=== PATIENT | male | born 1940 | race Caucasian/White ===

== ENCOUNTER 2023-09-23 16:26 | Emergency (ER) | payer OTHER, SELFPAY ==
[2023-09-23 16:59] VITALS: BP 187/88
[2023-09-23 17:26] LABS: % Basophils 0.7 % (0-2); % Eosinophils 0.7 % (0-6); % Immature Granulocytes 0.7 % (0-0.5); % Lymphocytes 13.9 % (20.5-51.1); Absolute Lymphocytes 0.8 10^3/uL (1.2-3.4); Absolute Monocytes 0.5 10^3/uL (0.1-0.6); Absolute Neutrophils 4.5 10^3/uL (1.4-6.5); Hematocrit 28.8 % (39.0-52.0); Hemoglobin 9.6 g/dL (13.0-18.0); Mean Corp Hgb Conc. 33.3 g/dL (33.0-37.0); Mean Corpuscular Hgb 29.1 pg (27.0-31.0); Mean Corpuscular Volume 87.3 fL (80.0-94.0); Mean Platelet Volume 9.8 fL (7.4-10.4); Nucleated Red Blood Cells % 0 % (-); Platelet Count 364 10^3/uL (130-400); Red Cell Dist. Width 16.7 % (11.5-14.5); White Blood Cell Count 5.9 10^3/uL (4.8-10.8)
[2023-09-23 17:41] LABS: ALT (SGPT) < 10 U/L (0-50); AST (SGOT) 16 U/L (17-59); Albumin 3.4 g/dl (3.5-5.0); Alkaline Phosphatase 87 U/L (38-126); Blood Urea Nitrogen 21 mg/dl (9-20); Calcium 8.5 mg/dl (8.4-10.2); Carbon Dioxide 25 mmol/L (22-30); Chloride 102 mmol/L (98-107); Glucose 104 mg/dl (70-99); Potassium 4.2 mmol/L (3.5-5.1); Sodium 134 mmol/L (135-145); Total Bilirubin 0.7 mg/dl (0.2-1.3); Total Protein 6.7 g/dl (6.3-8.2); Uric Acid 7.3 mg/dl (3.5-8.5); eGFR > 60.00
[2023-09-23 18:32] LABS: Erythrocyte Sed Rate 61 mm/hour (0-20)
--- NOTE | 2023-09-23 19:23 | ED.GENMED ---
History of Present Illness
General
Chief Complaint: Swelling
Source: patient and family
Exam Limitations: none
Time Seen by Provider: 09/23/23 19:07
Nursing documentation reviewed up to this point in time: agreed with
Travel History
Have you had any contact with someone who has COVID-19?: No
Do you have any symptoms of coronavirus? Fever > 100 degrees, chills, cough, shortness of breath, sore throat, loss of taste or smell, muscle aches, or headache?: No
History of Present Illness
History of Present Illness:
Patient with history osteoarthritis, presents to ED secondary to recurrent atraumatic left hand/wrist swelling noted over the past 2 days. Denies fever or chills. Denies direct trauma. Denies loss of sensation or weakness. Denies recent change
in medications or diet. Per family, patient unfortunately has had number of similar symptoms in the past, including opposite hand as well over the past couple years, which usually resolves with elevation.
Past History
Past History
ED Past Medical History: CAD, CHF, HTN, Hypercholesterolemia and Other (BPH)
ED Past Surgical History: Cardiac (Pacemaker, PTCA with stents) and Orthopedic (Bilateral knee replacements)
Patient has exhibited threatening behavior?: No
PSI?: No
Social History
Tobacco: Non-smoker
Personal:
Living: assisted living (Resides with in an assisted living apartment)
Employment: Retired
Family History
Family History: Other (Noncontributory)
Review of Systems
Review of Systems
Allergies reviewed?: Yes
All Other Systems: ROS reviewed and negative except as documented in HPI and ROS
Constitutional: Reports no symptoms
ABD/GI: Reports no symptoms
Musculoskeletal: Reports other (Hand and wrist swelling)
Skin: Reports no symptoms
Neurological: Reports no symptoms; Denies weakness or numbness
Phy Exam
Physical Exam
Physical Exam:
Physical Exam
General: no apparent distress, not acutely ill. afebrile
Head: nc/at. eomi
Neck: supple. normal range of motion.
Neuro: alert and oriented. no focal neurological deficits
Skin: no rash
Psychiatric: well kept. interactive and cooperative
Extremities: left hand/wrist swelling noted without erythema/ecchymosis. nontender to palpation.
Scores
Heart Failure Risk
Heart Failure Risk Score: Not Applicable
Course
Orders/Labs/Results
Orders:
Orders
09/23/23 17:08
Complete Blood Count/With Diff Urgent
Comprehensive Metabolic Panel Urgent
Erythrocyte Sed Rate Urgent
Comment: ADD ON
Rheumatoid Agglutinin Urgent
Comment: ADD ON
Uric Acid Urgent
09/23/23 17:50
Add On- LAB Urgent
Tests Added?: ESR
09/23/23 19:25
[place] Wrist Left-Treatment ONCE
09/23/23 19:27
Add On- LAB Urgent
Tests Added?: Rheumatoid factor
Abnormal Lab Results
09/23/23
17:08
RBC 3.30 L 10^6/uL
(4.70-6.10)
Hgb 9.6 L g/dL
(13.0-18.0)
Hct 28.8 L %
(39.0-52.0)
RDW 16.7 H %
(11.5-14.5)
Absolute Lymphs (auto) 0.8 L 10^3/uL
(1.2-3.4)
Immature Gran % 0.7 H %
(0-0.5)
Neutrophils % 76.0 H %
(42.2-75.2)
Lymphocytes % 13.9 L %
(20.5-51.1)
ESR 61 H mm/hour
(0-20)
Sodium 134 L mmol/L
(135-145)
BUN 21 H mg/dl
(9-20)
Glucose 104 H mg/dl
(70-99)
AST 16 L U/L
(17-59)
Albumin 3.4 L g/dl
(3.5-5.0)
09/23/23 17:08
09/23/23 17:08
Vital Signs
Initial and Last Documented VS:
Initial Vital Signs
Temp Pulse Resp BP Pulse Ox
98.2 F 55 20 187/88 95
09/23/23 16:59 09/23/23 16:59 09/23/23 16:59 09/23/23 16:59 09/23/23 16:59
Last Documented Vital Signs
Temp Pulse Resp BP Pulse Ox
98.2 F 55 20 187/88 95
09/23/23 16:59 09/23/23 16:59 09/23/23 16:59 09/23/23 19:47 09/23/23 16:59
MDM/Problems Addressed
MDM/Problems Addressed:
History and exam consistent with likely recurrent pain and swelling from underlying osteoarthritis versus with history of rheumatoid arthritis. Otherwise, patient is afebrile, neurologically intact, and is without any acute distress. No evidence
of trauma on exam, nor history of exam. As such, there is no indication for any imaging studies at this time. Patient will be treated symptomatically with application of universal wrist splint along with recommendation to keep the affected
hand/wrist elevated, as well as outpatient follow-up with PCP and/or chief of surgery. Advised to return to ED with worsening symptoms, i.e. fever/worsening swelling/pain.
Anemia noted - advised repeat blood work with pcp in 2-3 weeks
*Critical Care Note
Total Time (30-74mins, 75-104mins- exclusive of procedures): Not Applicable
ED Attending Note
-
Portions of this chart may have been created with voice recognition software.� Occasional wrong word or��sound alike� substitutions may have occurred due to the inherent limitations of voice recognition software.
Discharge Plan
Departure
Patient Disposition: Home (Routine Discharge)
Date of Disposition: 09/23/23
Time of Disposition: 19:27
Patient with high blood pressure during this ER visit?: Yes
Discharge Problem:
Osteoarthritis, Anemia
Instructions: Osteoarthritis (DC), Normocytic Normochromic Anemia (DC)
Prescriptions:
No Action
spironolactone 25 mg Tablet
12.5 mg PO DAILY
tamsulosin [Flomax] 0.4 mg Capsule
0.4 mg PO HS
finasteride [Proscar] 5 mg Tablet
5 mg PO DAILY
Entresto 24-26 mg Tablet
1 tab PO BID
cyanocobalamin (vitamin B-12) 1,000 mcg Tablet Extended Release
1,000 mcg PO DAILY
pravastatin 40 mg Tablet
40 mg PO HS
ranolazine 500 mg Tablet Extended Release 12 Hr
500 mg PO BID
cholecalciferol (vitamin D3) [Vitamin D3] 25 mcg (1,000 unit) Tablet
25 mcg PO DAILY
sennosides [senna] 8.6 mg Tablet
17.2 mg PO HS
polyethylene glycol 3350 [Miralax] 17 gram Powder In Packet
17 g PO DAILY
metoprolol succinate 50 mg Tablet Extended Release 24 Hr
50 mg PO DAILY
miconazole nitrate 2 % Powder
1 applic TOPICAL TIDPRN PRN (Reason: rash)
Rx Instructions:
apply to groin
furosemide 20 mg Tablet
20 mg PO DAILY
Ferretts 325 mg (106 mg iron) Tablet
325 mg PO MOWEFR
Eliquis 5 mg Tablet
5 mg PO BID
naloxone 4 mg/actuation spray,non-aerosol
4 mg INTRANASAL Q2MPRN PRN (Reason: respiratory distress)
Xtampza ER 9 mg Cap,Sprinkl,Er12hr(Robertt Crush)
9 mg PO Q12H
Hold Instructions: Resume on 06/17/23. Resume only after checking with your primary care physican if okay to resume.
midodrine 5 mg Tablet
10 mg PO TID@0800,1300,1800 Qty: 60 1RF
Rx Instructions:
*AVOID DOSING AFTER EVENING MEAL OR WITHIN 4 HOURS OF
BEDTIME* HOLD DOSE FOR SBP >100
Referrals:
Devonte Paez MD [Active] -
Karne Galvan DO [Family Provider] -
Activity Restrictions/Additional Instructions:
As discussed, please follow-up with your primary care physician and/or referred to bar tender for further evaluation and treatment. Please return to ED with worsening symptoms, i.e. fever/worsening pain/worsening swelling.
Interventions
Interventions:
*Risk Screen - Suicide Last Done: 09/23/23 16:59
*General Assessment Last Done: 09/23/23 16:59
*Neglect/Abuse Screening Last Done: 09/23/23 19:47
*Nursing Disposition Last Done: 09/23/23 19:47
ED- Cardiac Assessment Last Done: 09/23/23 19:47
ED- Pulmonary Assessment Last Done: 09/23/23 19:47
ED-Skin Assessment Last Done: 09/23/23 19:47
Discharge Date and Time
Discharge Date/Time: 09/23/23 19:49
[2023-09-23 19:47] VITALS: BP 187/88
[2023-09-26 15:49] LABS: Rheumatoid Agglutinin Less Than 10 IU (<10 IU)
== END 2023-09-23 19:49 | disposition home or self-care (01) ==
LOC: EMR 16:26
PROVIDERS: Emergency Medicine; EMERGENCY PHYSICIAN Emergency Medicine; FAMILY PHYSICIAN Student in an Organized Health Care Education/Training Program
DX: M19.032 Primary osteoarthritis, left wrist (principal); D64.9 Anemia, unspecified; I10 Essential (primary) hypertension
CPT/HCPCS: 99283; 29125; 80053; 84550; 85025; 85652; 86430

== ENCOUNTER → 2023-09-29 09:23 | Outpatient (REF) | payer OTHER, SELFPAY ==
[2023-09-29 10:45] LABS: % Basophils 0.9 % (0-2); % Eosinophils 1.2 % (0-6); % Immature Granulocytes 0.7 % (0-0.5); % Lymphocytes 14.5 % (20.5-51.1); % Monocytes 9.2 % (1.7-9.3); % Neutrophils 73.5 % (42.2-75.2); Absolute Basophils 0.1 10^3/uL (0-0.2); Absolute Eosinophils 0.1 10^3/uL (0-0.7); Absolute Lymphocytes 0.8 10^3/uL (1.2-3.4); Absolute Monocytes 0.5 10^3/uL (0.1-0.6); Absolute Neutrophils 4.2 10^3/uL (1.4-6.5); Hematocrit 25.9 % (39.0-52.0); Hemoglobin 8.8 g/dL (13.0-18.0); Mean Corpuscular Hgb 29.8 pg (27.0-31.0); Mean Corpuscular Volume 87.8 fL (80.0-94.0); Mean Platelet Volume 10.5 fL (7.4-10.4); Nucleated Red Blood Cells % 0.7 % (-); Platelet Count 318 10^3/uL (130-400); Red Blood Cell Count 2.95 10^6/uL (4.70-6.10); Red Cell Dist. Width 16.9 % (11.5-14.5); White Blood Cell Count 5.7 10^3/uL (4.8-10.8)
[2023-09-29 10:53] LABS: HDL Cholesterol 34 mg/dl; LDL Cholesterol, Calculated 47 mg/dl; Total Cholesterol 98 mg/dl (50-199); Triglyceride 89 mg/dl (10-149); Very Low Density Lipoprotein 17 mg/dl (0-30)
[2023-09-29 10:55] LABS: NT-proBNP 7620 pg/ml
[2023-09-29 11:17] LABS: Vitamin D, 25-OH*** 35.2 ng/mL (30-80)
[2023-09-29 11:30] LABS: TSH 1.41 uIU/ml (0.47-4.68)
[2023-09-29 11:50] LABS: Vitamin B12 965 pg/ml (239-931)
== END ==
LOC: OLABMERCHI 09:23
PROVIDERS: ATTENDING PHYSICIAN Student in an Organized Health Care Education/Training Program
DX: I50.20 Unspecified systolic (congestive) heart failure (principal); M79.2 Neuralgia and neuritis, unspecified; E55.9 Vitamin D deficiency, unspecified; E53.8 Deficiency of other specified B group vitamins; F03.90 Unspecified dementia, unspecified severity, without behavioral disturbance, psychotic disturbance, mood disturbance, and anxiety
CPT/HCPCS: 36415; 80061; 82306; 82607; 83880; 84439; 84443; 85025

== ENCOUNTER → 2023-10-13 09:31 | Outpatient (REF) | payer OTHER, SELFPAY ==
[2023-10-13 11:32] LABS: % Basophils 1.1 % (0-2); % Eosinophils 2.1 % (0-6); % Immature Granulocytes 0.7 % (0-0.5); % Monocytes 8.6 % (1.7-9.3); % Neutrophils 68.5 % (42.2-75.2); Absolute Basophils 0.1 10^3/uL (0-0.2); Absolute Eosinophils 0.1 10^3/uL (0-0.7); Absolute Monocytes 0.5 10^3/uL (0.1-0.6); Absolute Neutrophils 3.7 10^3/uL (1.4-6.5); Hematocrit 28.8 % (39.0-52.0); Hemoglobin 9.3 g/dL (13.0-18.0); Mean Corp Hgb Conc. 32.3 g/dL (33.0-37.0); Mean Corpuscular Hgb 29.2 pg (27.0-31.0); Mean Corpuscular Volume 90.6 fL (80.0-94.0); Mean Platelet Volume 10.2 fL (7.4-10.4); Nucleated Red Blood Cells % 0 % (-); Platelet Count 346 10^3/uL (130-400); Red Blood Cell Count 3.18 10^6/uL (4.70-6.10); Red Cell Dist. Width 17.9 % (11.5-14.5); White Blood Cell Count 5.4 10^3/uL (4.8-10.8)
[2023-10-13 13:26] LABS: Iron 42 ug/dl (49-181)
[2023-10-13 13:35] LABS: Percent Saturation 18 % (20-50); Total Iron Binding Capacity 223 ug/dl (261-462)
== END ==
LOC: OLABMERCHI 09:31
PROVIDERS: ATTENDING PHYSICIAN Student in an Organized Health Care Education/Training Program
DX: D64.9 Anemia, unspecified (principal)
CPT/HCPCS: 82728; 83540; 83550; 85025

== ENCOUNTER → 2023-11-17 11:05 | Outpatient (REF) | payer OTHER, SELFPAY ==
[2023-11-17 12:17] LABS: % Basophils 0.8 % (0-2); % Eosinophils 0.6 % (0-6); % Immature Granulocytes 0.6 % (0-0.5); % Lymphocytes 19.3 % (20.5-51.1); % Neutrophils 68.7 % (42.2-75.2); Absolute Monocytes 0.5 10^3/uL (0.1-0.6); Absolute Neutrophils 3.6 10^3/uL (1.4-6.5); Hematocrit 26.3 % (39.0-52.0); Hemoglobin 8.6 g/dL (13.0-18.0); Mean Corp Hgb Conc. 32.7 g/dL (33.0-37.0); Mean Corpuscular Hgb 29.3 pg (27.0-31.0); Mean Corpuscular Volume 89.5 fL (80.0-94.0); Mean Platelet Volume 10.3 fL (7.4-10.4); Nucleated Red Blood Cells % 0 % (-); Platelet Count 340 10^3/uL (130-400); Red Blood Cell Count 2.94 10^6/uL (4.70-6.10); Red Cell Dist. Width 17.1 % (11.5-14.5); White Blood Cell Count 5.2 10^3/uL (4.8-10.8)
[2023-11-17 12:37] LABS: Total Iron Binding Capacity 210 ug/dl (261-462)
[2023-11-17 12:41] LABS: Iron < 20 ug/dl (49-181)
[2023-11-17 13:02] LABS: Ferritin 79.6 ng/ml (17.9-464.0)
== END ==
LOC: OLABMERCHI 11:05
PROVIDERS: ATTENDING PHYSICIAN Student in an Organized Health Care Education/Training Program
DX: D64.9 Anemia, unspecified (principal); D50.9 Iron deficiency anemia, unspecified
CPT/HCPCS: 36415; 82728; 83540; 83550; 85025

== ENCOUNTER → 2023-12-07 13:19 | Outpatient (REF) | payer OTHER, SELFPAY ==
[2023-12-07 12:13] LABS: % Basophils 0.3 % (0-2); % Eosinophils 0.1 % (0-6); % Immature Granulocytes 0.3 % (0-0.5); % Lymphocytes 11.4 % (20.5-51.1); % Neutrophils 80.9 % (42.2-75.2); Absolute Lymphocytes 0.8 10^3/uL (1.2-3.4); Absolute Monocytes 0.5 10^3/uL (0.1-0.6); Absolute Neutrophils 5.6 10^3/uL (1.4-6.5); Hematocrit 28.4 % (39.0-52.0); Hemoglobin 9.4 g/dL (13.0-18.0); Mean Corp Hgb Conc. 33.1 g/dL (33.0-37.0); Mean Corpuscular Hgb 29.3 pg (27.0-31.0); Mean Corpuscular Volume 88.5 fL (80.0-94.0); Mean Platelet Volume 9.3 fL (7.4-10.4); Platelet Count 384 10^3/uL (130-400); Red Blood Cell Count 3.21 10^6/uL (4.70-6.10); Red Cell Dist. Width 16.5 % (11.5-14.5); White Blood Cell Count 6.9 10^3/uL (4.8-10.8)
== END ==
LOC: OIDL 13:19
PROVIDERS: ATTENDING PHYSICIAN Internal Medicine Hematology & Oncology
DX: D64.9 Anemia, unspecified (principal)
CPT/HCPCS: 85025

== ENCOUNTER → 2023-12-14 15:54 | Outpatient (REF) | payer OTHER, SELFPAY ==
[2023-12-14 12:42] LABS: % Basophils 0.3 % (0-2); % Eosinophils 0.3 % (0-6); % Immature Granulocytes 0.3 % (0-0.5); % Monocytes 4.9 % (1.7-9.3); % Neutrophils 81.2 % (42.2-75.2); Absolute Lymphocytes 0.9 10^3/uL (1.2-3.4); Absolute Monocytes 0.3 10^3/uL (0.1-0.6); Absolute Neutrophils 5.7 10^3/uL (1.4-6.5); Hematocrit 28.6 % (39.0-52.0); Hemoglobin 9.4 g/dL (13.0-18.0); Mean Corp Hgb Conc. 32.9 g/dL (33.0-37.0); Mean Corpuscular Hgb 29.1 pg (27.0-31.0); Mean Corpuscular Volume 88.5 fL (80.0-94.0); Mean Platelet Volume 9.3 fL (7.4-10.4); Platelet Count 378 10^3/uL (130-400); Red Blood Cell Count 3.23 10^6/uL (4.70-6.10); Red Cell Dist. Width 17.3 % (11.5-14.5)
== END ==
LOC: OIDL 15:54
PROVIDERS: ATTENDING PHYSICIAN Internal Medicine Hematology & Oncology
DX: D64.9 Anemia, unspecified (principal)
CPT/HCPCS: 85025

== ENCOUNTER → 2023-12-21 15:51 | Outpatient (REF) | payer OTHER, SELFPAY ==
[2023-12-21 16:03] LABS: % Basophils 0.8 % (0-2); % Eosinophils 0.5 % (0-6); % Immature Granulocytes 0.3 % (0-0.5); % Monocytes 7.7 % (1.7-9.3); % Neutrophils 73.7 % (42.2-75.2); Absolute Basophils 0.1 10^3/uL (0-0.2); Absolute Monocytes 0.5 10^3/uL (0.1-0.6); Absolute Neutrophils 4.4 10^3/uL (1.4-6.5); Hematocrit 27.7 % (39.0-52.0); Mean Corp Hgb Conc. 32.5 g/dL (33.0-37.0); Mean Corpuscular Hgb 29.1 pg (27.0-31.0); Mean Corpuscular Volume 89.6 fL (80.0-94.0); Mean Platelet Volume 10.4 fL (7.4-10.4); Nucleated Red Blood Cells % 0 % (-); Platelet Count 309 10^3/uL (130-400); Red Blood Cell Count 3.09 10^6/uL (4.70-6.10); Red Cell Dist. Width 17.9 % (11.5-14.5)
== END ==
LOC: OIDL 15:51
PROVIDERS: ATTENDING PHYSICIAN Internal Medicine Hematology & Oncology
DX: D64.9 Anemia, unspecified (principal)
CPT/HCPCS: 85025

== ENCOUNTER → 2023-12-28 13:00 | Outpatient (REF) | payer OTHER, SELFPAY ==
[2023-12-28 11:36] LABS: % Basophils 0.2 % (0-2); % Eosinophils 0.3 % (0-6); % Immature Granulocytes 0.2 % (0-0.5); % Lymphocytes 11.2 % (20.5-51.1); % Monocytes 6.3 % (1.7-9.3); % Neutrophils 81.8 % (42.2-75.2); Absolute Lymphocytes 0.7 10^3/uL (1.2-3.4); Absolute Monocytes 0.4 10^3/uL (0.1-0.6); Absolute Neutrophils 5.4 10^3/uL (1.4-6.5); Hematocrit 29.5 % (39.0-52.0); Hemoglobin 9.8 g/dL (13.0-18.0); Mean Corp Hgb Conc. 33.2 g/dL (33.0-37.0); Mean Corpuscular Hgb 29.7 pg (27.0-31.0); Mean Corpuscular Volume 89.4 fL (80.0-94.0); Mean Platelet Volume 9.6 fL (7.4-10.4); Platelet Count 350 10^3/uL (130-400); White Blood Cell Count 6.5 10^3/uL (4.8-10.8)
== END ==
LOC: OIDL 13:00
PROVIDERS: ATTENDING PHYSICIAN Internal Medicine Hematology & Oncology
DX: D64.9 Anemia, unspecified (principal)
CPT/HCPCS: 85025

== ENCOUNTER → 2024-01-04 16:22 | Outpatient (REF) | payer OTHER, SELFPAY ==
[2024-01-04 11:59] LABS: % Basophils 0.3 % (0-2); % Eosinophils 0.5 % (0-6); % Immature Granulocytes 0.2 % (0-0.5); % Lymphocytes 12.8 % (20.5-51.1); % Monocytes 6.3 % (1.7-9.3); % Neutrophils 79.9 % (42.2-75.2); Absolute Lymphocytes 0.8 10^3/uL (1.2-3.4); Absolute Monocytes 0.4 10^3/uL (0.1-0.6); Absolute Neutrophils 4.9 10^3/uL (1.4-6.5); Hematocrit 28.9 % (39.0-52.0); Hemoglobin 9.6 g/dL (13.0-18.0); Mean Corp Hgb Conc. 33.2 g/dL (33.0-37.0); Mean Corpuscular Hgb 29.8 pg (27.0-31.0); Mean Corpuscular Volume 89.8 fL (80.0-94.0); Mean Platelet Volume 9.4 fL (7.4-10.4); Platelet Count 376 10^3/uL (130-400); Red Blood Cell Count 3.22 10^6/uL (4.70-6.10); White Blood Cell Count 6.2 10^3/uL (4.8-10.8)
== END ==
LOC: OIDL 16:22
PROVIDERS: ATTENDING PHYSICIAN Internal Medicine Hematology & Oncology
DX: D64.9 Anemia, unspecified (principal)
CPT/HCPCS: 85025

== ENCOUNTER 2024-02-14 21:32 | Emergency (ER) | payer OTHER, SELFPAY ==
[2024-02-14 21:37] VITALS: BP 104/54
--- NOTE | 2024-02-14 23:04 | ED.GENMED ---
History of Present Illness
General
Chief Complaint: Prescription Refill
Source: patient and family (Daughter)
Exam Limitations: dementia (Slight)
Time Seen by Provider: 02/14/24 22:43
History of Present Illness
History of Present Illness:
This is a 83 year old male that is brought in by daughter with c/o running out of his medication. Daughter states that he takes Xtampza ER 13.5mg BID. States that they noticed this afternoon that his medication ran out and they attempted to call the
PCP all day but no one answered the phone. State that he takes this medication at 8am and 8pm. State that they were concerned that the patient would go through withdraw so they sent him in. Denies any fever, chills, chest pain,SOB, abd pain, nausea,
vomiting, diarrhea, headache, dizziness.
Past History
Past History
ED Past Medical History: Arrthythmia (Atrial fib), CAD, CHF, COPD, HTN, Hypercholesterolemia, [place] and Other (BPH, Dementia, )
ED Past Surgical History: Cardiac (Pacer/defib, PTCA with stents, CABG) and Orthopedic (Bilateral knee replacements)
Patient has exhibited threatening behavior?: No
PSI?: No
Social History
Tobacco: Former smoker
Alcohol: Occasional
Personal:
Living: assisted living (Resides with in an assisted living apartment)
Employment: Retired
Family History
Family History: Other (Noncontributory)
Review of Systems
Review of Systems
Other source history: family
All Other Systems: ROS reviewed and negative except as documented in HPI and ROS
Constitutional: Reports no symptoms; Denies fever or chills
EENT: Reports no symptoms
Respiratory: Reports no symptoms; Denies cough or trouble breathing
Cardiac: Reports no symptoms; Denies chest pain
ABD/GI: Reports no symptoms; Denies abdominal pain, nausea, vomiting or diarrhea
: Reports no symptoms; Denies frequency or urgency
Musculoskeletal: Reports no symptoms
Skin: Reports no symptoms
Neurological: Reports no symptoms; Denies dizzy or headache
Psychiatric: Reports no symptoms
Phy Exam
General Physical Exam
General Presentation: no apparent distress
General age: appears stated age
General Skin: warm
General Habitus: elderly
General Mental: usual mental status
General Hydration: appears well hydrated
ENT Exam
ENT Exam: TM's normal, pharynx normal and neck supple
Eye Exam
Eye Exam: EOMI
Cardiovascular Exam
Cardiovascular Exam: normal peripheral pulses and pacemaker
Pulmonary Exam
Pulmonary Exam: lungs clear, no respiratory distress, no rales, chest non tender, no crackles, no rhonchi, no wheezing and no cough
Musculoskeletal Exam
Musculoskeletal Exam: full ROM and edema (Pitting edema +1 ankles)
Skin Exam
Skin Exam: normal color, warm/dry and no petechia
Psychiatric Exam
Psychiatric Exam: normal mood/affect
Course
Orders/Labs/Results
Orders:
Orders
02/14/24 23:03
Oxycodone [Roxicodone] 15 mg PO NOW STA
Vital Signs
Initial and Last Documented VS:
Initial Vital Signs
Temp Pulse Resp BP Pulse Ox
98.1 F 58 24 104/54 100
02/14/24 21:37 02/14/24 21:37 02/14/24 21:37 02/14/24 21:37 02/14/24 21:37
Last Documented Vital Signs
Temp Pulse Resp BP Pulse Ox
98.1 F 58 24 104/54 100
02/14/24 21:37 02/14/24 21:37 02/14/24 21:37 02/14/24 21:37 02/14/24 21:37
MDM/Problems Addressed
Differential Diagnosis Includes:
Medication refill
MDM/Problems Addressed:
This is a 83 year old male that is brought in by his daughter. Patient lives at [facility] and she was call and told that the patient ran out of his Medication. States that they had tried to call the doctor office all day and were unable to get
anyone to answer the phone. States that they were concerned that the patient would go through withdraw symptoms.
Explained to daughter that [facility] dose not carry this medication. Will give patient Oxycodone which is the closes to his medication. [facility] to call tomorrow to get this refilled. Return with any concerns.
Chronic conditions affecting care:
Chronic Xtampza use,
Acute Exacerbation and/or Progression of Chronic Illness:
Chronic Xtampza use
*Pulse Oximetry
Patient hypoxic: no
*EKG
Interpreted by ED Provider?: NA
Rate: EKG- N/A
*Senior Game Designer Interpretation
Rate: Senior Game Designer- N/A
*Critical Care Note
Total Time (30-74mins, 75-104mins- exclusive of procedures): Not Applicable
ED Attending Note
-
Portions of this chart may have been created with voice recognition software.� Occasional wrong word or��sound alike� substitutions may have occurred due to the inherent limitations of voice recognition software.
Discharge Plan
Departure
Patient Disposition: Fdc/SNF
Date of Disposition: 02/14/24
Time of Disposition: 23:04
Patient with high blood pressure during this ER visit?: No
Condition: Good
Covid-19: Not Applicable
Discharge Problem:
Encounter for medication refill
Prescriptions:
No Action
spironolactone 25 mg Tablet
12.5 mg PO DAILY
tamsulosin [Flomax] 0.4 mg Capsule
0.4 mg PO HS
finasteride [Proscar] 5 mg Tablet
5 mg PO DAILY
Entresto 24-26 mg Tablet
1 tab PO BID
cyanocobalamin (vitamin B-12) 1,000 mcg Tablet Extended Release
1,000 mcg PO DAILY
pravastatin 40 mg Tablet
40 mg PO HS
ranolazine 500 mg Tablet Extended Release 12 Hr
500 mg PO BID
cholecalciferol (vitamin D3) [Vitamin D3] 25 mcg (1,000 unit) Tablet
25 mcg PO DAILY
sennosides [senna] 8.6 mg Tablet
17.2 mg PO HS
polyethylene glycol 3350 [Miralax] 17 gram Powder In Packet
17 g PO DAILY
metoprolol succinate 50 mg Tablet Extended Release 24 Hr
50 mg PO DAILY
miconazole nitrate 2 % Powder
1 applic TOPICAL TIDPRN PRN (Reason: rash)
Rx Instructions:
apply to groin
furosemide 20 mg Tablet
20 mg PO DAILY
Ferretts 325 mg (106 mg iron) Tablet
325 mg PO MOWEFR
Eliquis 5 mg Tablet
5 mg PO BID
naloxone 4 mg/actuation spray,non-aerosol
4 mg INTRANASAL Q2MPRN PRN (Reason: respiratory distress)
Xtampza ER 9 mg Cap,Sprinkl,Er12hr(Dont Crush)
9 mg PO Q12H
midodrine 5 mg Tablet
10 mg PO TID@0800,1300,1800 Qty: 60 1RF
Rx Instructions:
*AVOID DOSING AFTER EVENING MEAL OR WITHIN 4 HOURS OF
BEDTIME* HOLD DOSE FOR SBP >100
Referrals:
Julio César Walker, [Family Provider] - Tomorrow
Activity Restrictions/Additional Instructions:
As discussed, we do not carry this medication. You have been given the Equivalent for this. PLEASE CALL THE DOCTOR TOMORROW AND GET YOUR MEDICATION REFILLED. IF YOU HAVE ANY OTHER CONCERNS PLEASE RETURN TO THE EMERGENCY ROOM.
Interventions
Interventions:
*Risk Screen - Suicide Last Done: 02/14/24 22:37
*General Assessment Last Done: 02/14/24 22:39
*Neglect/Abuse Screening Last Done: 02/14/24 22:37
Discharge Date and Time
Print Language: GEORGIAN
[2024-02-14] MEDS: ROXICODONE 15 MG PO (23:15)
[2024-02-14 23:25] VITALS: BP 95/46
[2024-02-14 23:26] VITALS: BP 95/46
== END 2024-02-15 00:43 ==
LOC: EMR 21:32
PROVIDERS: EMERGENCY PHYSICIAN Student in an Organized Health Care Education/Training Program; FAMILY PHYSICIAN Family Medicine
DX: Z76.0 Encounter for issue of repeat prescription (principal); I48.91 Unspecified atrial fibrillation; I25.10 Atherosclerotic heart disease of native coronary artery without angina pectoris; I11.0 Hypertensive heart disease with heart failure; I50.9 Heart failure, unspecified; E78.00 Pure hypercholesterolemia, unspecified; F03.90 Unspecified dementia, unspecified severity, without behavioral disturbance, psychotic disturbance, mood disturbance, and anxiety; J44.9 Chronic obstructive pulmonary disease, unspecified; N40.0 Benign prostatic hyperplasia without lower urinary tract symptoms; Z87.891 Personal history of nicotine dependence; Z95.1 Presence of aortocoronary bypass graft; Z95.5 Presence of coronary angioplasty implant and graft; Z96.653 Presence of artificial knee joint, bilateral
CPT/HCPCS: 99282

== ENCOUNTER 2024-02-20 16:15 | Inpatient (IN) | payer OTHER, SELFPAY ==
[2024-02-20] VITALS (23 sets, daily range): BP systolic 71–122; BP diastolic 40–93; BMI 20.7
[2024-02-20 11:54] LABS: % Basophils 0.7 % (0-2); % Eosinophils 1.2 % (0-6); % Immature Granulocytes 0.3 % (0-0.5); % Lymphocytes 14.8 % (20.5-51.1); % Monocytes 6.3 % (1.7-9.3); % Neutrophils 76.7 % (42.2-75.2); Absolute Eosinophils 0.1 10^3/uL (0-0.7); Absolute Lymphocytes 0.9 10^3/uL (1.2-3.4); Absolute Monocytes 0.4 10^3/uL (0.1-0.6); Absolute Neutrophils 4.6 10^3/uL (1.4-6.5); Hematocrit 27.7 % (39.0-52.0); Hemoglobin 9.2 g/dL (13.0-18.0); Mean Corp Hgb Conc. 33.2 g/dL (33.0-37.0); Mean Corpuscular Hgb 30.8 pg (27.0-31.0); Mean Corpuscular Volume 92.6 fL (80.0-94.0); Mean Platelet Volume 9.9 fL (7.4-10.4); Nucleated Red Blood Cells % 0 % (-); Platelet Count 315 10^3/uL (130-400); Red Blood Cell Count 2.99 10^6/uL (4.70-6.10); Red Cell Dist. Width 17.6 % (11.5-14.5)
[2024-02-20 12:21] LABS: ALT (SGPT) < 10 U/L (0-50); AST (SGOT) 16 U/L (17-59); Albumin 3.5 g/dl (3.5-5.0); Alkaline Phosphatase 63 U/L (38-126); Blood Urea Nitrogen 30 mg/dl (9-20); Carbon Dioxide 25 mmol/L (22-30); Chloride 103 mmol/L (98-107); Estimated Creatinine Clearance 46 ml/min; Glucose 96 mg/dl (70-99); Potassium 4.2 mmol/L (3.5-5.1); Sodium 137 mmol/L (135-145); Total Protein 6.1 g/dl (6.3-8.2); eGFR 59.63
[2024-02-20 12:22] LABS: Troponin I 0.045 ng/ml
[2024-02-20 12:31] LABS: Total Bilirubin 0.4 mg/dl (0.2-1.3)
[2024-02-20] MEDS: NSS 1000 IV (12:40)
[2024-02-20 12:42] LABS: INR 1.83
--- NOTE | 2024-02-20 13:44 | ED.GENMED ---
History of Present Illness
General
Chief Complaint: Chest Pain
Time Seen by Provider: 02/20/24 12:01
History of Present Illness
History of Present Illness:
83-year-old male with history of CAD status post CABG, hypertension, CHF, dementia, hyperlipidemia, AICD presenting to the emergency department from [facility] for chest pain. Patient is reporting chest pain for the past several days,
left-sided, intermittent. Denies any difficulty breathing or any lower extremity swelling. Denies any exertional component to symptoms. Denies fever or cough. Denies abdominal pain or vomiting. Patient is a relatively limited historian given
his dementia. No additional history obtained at this time.
Past History
Past History
ED Past Medical History: Arrthythmia (Atrial fib), CAD, CHF, COPD, HTN, Hypercholesterolemia, [place] and Other (BPH, Dementia, )
ED Past Surgical History: Cardiac (Pacer/defib, PTCA with stents, CABG) and Orthopedic (Bilateral knee replacements)
Patient has exhibited threatening behavior?: No
PSI?: No
Social History
Tobacco: Former smoker
Alcohol: Occasional
Personal:
Living: assisted living (Resides with in an assisted living apartment)
Employment: Retired
Family History
Family History: Other (Noncontributory)
Phy Exam
Physical Exam
Physical Exam:
General: no clinical signs of dehydration, nontoxic and in no acute distress
HEENT: protecting airway
Neck: appears supple
CV: Normal heart rate, regular rhythm, no evidence of cyanosis
Resp: No accessory muscle use, no increased work of breathing, lungs clear to auscultation bilaterally
Abd: Soft and non-distended, no tenderness to palpation, normal bowel sounds
Extremities: No deformities, no swelling, no erythema, pulses and sensation intact
Neuro: alert, disoriented
: deferred
Rectal: deferred
Psych: Normal affect
Skin: Intact
Scores
Heart Score for Chest Pain Patients
STEMI patient?: No
History: Slightly or Non-Suspicious
ECG: Nonspecific Repolarization
Age: >/= 65 years
Risk Factors: >/= 3 Risk Factors or History of CAD
Troponin: >1 - <3 x Normal Limit
Heart Score for Chest Pain Patients: 6
Heart Score Risk: 20.3% MACE over next 6 weeks
Course
Orders/Labs/Results
Orders:
Orders
02/20/24 11:29
Electrocardiogram (*1) Urgent
Reason for Study: Chest Pain
02/20/24 11:39
Complete Blood Count/With Diff Urgent
Comprehensive Metabolic Panel Urgent
Troponin I Urgent
02/20/24 12:07
Chest X-ray Portable [CR Chest Portable - 1 View] Urgent
Comment:
Reason For Exam: chest pain, hypotension
Reason Study Needs to be Portable: Unable to Transport
02/20/24 12:10
CT Chest/abd/pelvis Angio W/wo Urgent
Comment:
Reason For Exam: chest pain, hypotensive
02/20/24 12:14
Prothrombin Time Urgent
02/20/24 12:37
0.9% Sodium Chloride 1000 ml [Nss] 1,000 ml IV BOLUS
02/20/24 Dinner
Clear Liquid
At Your Request: Limited Participation
Does patient need a safe tray?: No
02/20/24 15:48
Admit/Transfer Patient As Directed
Co-Sign Provider:
Level of Care: Inpatient admission
Assign to:: Telemetry
Physician / Group: Frank Bajwa
Diagnosis: Non-[place] Troponin elevation, Hypotension
Reason for Telemetry: Chest Pain syndromes
Date to Stop Telemetry: 02/22/24
Time to Stop Telemetry: 11:00
Reason for Hospitalization: hypotension, Non [place] troponin elevation
Expected length of stay greater than two midnights?: Yes
ELOS- Estimated Length of Stay in days: 3
I certify the patient meets the requirements for IP care: Yes
02/20/24 15:52
Code Status As Directed
Resuscitation Status: Do not resuscitate
Reached after discussion with pt or family/Healthcare POA: Yes
02/20/24 15:53
DNR Bracelet Application ONCE
02/20/24 17:13
Enema As Directed
Type: Soap suds
Amount: 3
DX DVT Prevention Inpt Video Routine
02/20/24 18:00
Midodrine [ProAmatine] 10 mg PO TID@0800,1300,1800
02/20/24 20:00
Apixaban [Eliquis] 5 mg PO BID
Cbd Cream 2500mg Tincture 0.5 ml PO BID
Clotrimazole/Betamet Diprop [Lotrisone Cream] 1 applic TOPICAL BID
Miconazole Nitrate [Desenex/Mitrazol/Zeasorb] See Dose Instructions TOPICAL BID
Oxycodone Controlled Release [Oxycontin (Controlled Release)] 15 mg PO BID
Ranolazine Extended Release [Ranexa Extended Release] 500 mg PO BID
02/20/24 22:00
Pravastatin Sodium [Pravachol] 40 mg PO HS
Sennosides [Senokot] 17.2 mg PO HS
Tamsulosin [Flomax] 0.4 mg PO HS
02/21/24 08:00
Cyanocobalamin [Vitamin B-12] 1,000 mcg PO DAILY
Finasteride [Proscar] 5 mg PO DAILY
Polyethylene Glycol Powder [Miralax] 17 grams PO DAILY
02/22/24 11:00
DC Protocol for Telemetry ONCE
Abnormal Lab Results
02/20/24 02/20/24
11:39 12:14
RBC 2.99 L 10^6/uL
(4.70-6.10)
Hgb 9.2 L g/dL
(13.0-18.0)
Hct 27.7 L %
(39.0-52.0)
RDW 17.6 H %
(11.5-14.5)
Absolute Lymphs (auto) 0.9 L 10^3/uL
(1.2-3.4)
Neutrophils % 76.7 H %
(42.2-75.2)
Lymphocytes % 14.8 L %
(20.5-51.1)
PT 21.0 H Sec
(11.4-14.6)
BUN 30 H mg/dl
(9-20)
AST 16 L U/L
(17-59)
Troponin I 0.045 H* ng/ml
Total Protein 6.1 L g/dl
(6.3-8.2)
02/20/24 11:39
02/20/24 11:39
Vital Signs
Initial and Last Documented VS:
Initial Vital Signs
Temp Pulse Resp BP Pulse Ox
97.4 F 65 15 83/49 97
02/20/24 11:32 02/20/24 11:32 02/20/24 11:32 02/20/24 11:32 02/20/24 11:32
Last Documented Vital Signs
Temp Pulse Resp BP Pulse Ox
97.6 F 58 16 93/52 98
02/21/24 11:50 02/21/24 11:50 02/21/24 11:50 02/21/24 13:04 02/21/24 11:50
MDM/Problems Addressed
MDM/Problems Addressed:
83-year-old male with history of CAD status post CABG, hypertension, CHF, dementia, hyperlipidemia, AICD presenting to the emergency department with chest pain for the past few days. Vital signs on arrival significant for hypotension.
On exam, patient is in no acute distress, however is markedly hypotensive. No clinical signs of volume overload, so IV fluids started. EKG obtained, ventricular paced rhythm. No obvious signs of ischemia patient however has significant coronary
history. For this reason will obtain laboratory analysis including troponin. In the setting of chest pain and hypotension, cannot safely rule out aortic pathology. For this reason we will obtain CT of the chest/abdomen/pelvis. Will continue to
closely monitor.
14:30 -patient's blood pressure has improved, fluid responsive. Troponin is elevated, however does appear to have a chronic elevation of his troponin. 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 Message sent to colorectal surgeon. Given presenting vital signs and CT findings, feel patient warrants admission for continued
monitoring and colorectal/GI/cardiology consultation. Daughter at bedside, updated. Patient agreeable to plan.
*EKG
Interpreted by ED Provider?: Yes
EKG Intrepretation Date: 02/20/24
EKG Intrepretation Time: 13:49
Interpretation: normal
Comparison EKG: changes noted (previously afib with RBBB)
Heart Rate: 69
Rate: normal
Rhythm: ventricular paced
[place]: normal axis
Interval: normal interval
Ischemia: no ischemia
*Critical Care Note
Total Time (30-74mins, 75-104mins- exclusive of procedures): Not Applicable
ED Attending Note
-
Portions of this chart may have been created with voice recognition software.� Occasional wrong word or��sound alike� substitutions may have occurred due to the inherent limitations of voice recognition software.
Discharge Plan
Departure
Patient Disposition: Admit
Date of Disposition: 02/20/24
Time of Disposition: 14:40
Presentation/result/management discussed w/ accepting MD/DO: Hospitalist
Patient with high blood pressure during this ER visit?: No
Condition: Fair
Discharge Problem:
Acute hypotension, Pneumatosis of intestines, Chest pain
Interventions
Interventions:
*Risk Screen - Suicide Last Done: 02/20/24 11:32
*General Assessment Last Done: 02/20/24 11:32
*Neglect/Abuse Screening Last Done: 02/20/24 11:32
*ED COVID-19 Vaccine History Last Done: 02/20/24 22:58
*Nursing Disposition Last Done: 02/20/24 17:21
ED- Cardiac Assessment Last Done: 02/20/24 12:19
Discharge Date and Time
Discharge Date/Time: 02/20/24 17:23
--- NOTE | 2024-02-20 15:55 | HPS.HSE ---
Family Physician
-
Family Physician: Julio César Walker DO
Chief Complaint
-
Left-sided chest pain
History of Present Illness
Patient is an 83-year-old male with history of CAD status post CABG, hypertension, CHF, dementia, hyperlipidemia, AICD, COPD, CHF, A-fib, hypercholesterolemia, LA, BPH presenting to [facility] from memory care unit for left-sided chest pain
and hypotension in the 70s. Patient reported that chest pain has been ongoing for past several days and is intermittent, but is not able to confirm exact number. He is unable to identify what causes the pain or assists with the pain. He states he
has no headaches, shortness of breath, nausea, vomiting, radiating pain, numbness, tingling. He has a history of chronic constipation secondary to opioid use.
In the ED he was given IV fluids, blood pressure was responsive, last in 90s systolic. EKG showed ventricular pacing. Troponins elevated. 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
no signs of hematoma or ruptured. Additionally patient has some stercoral colitis with rectal wall thickening and pneumatosis. Colorectal recommended enemas and potentially digital disimpaction tomorrow.
Medical History
Past Medical History
Past Medical History: Reports Arrhythmia, CAD, CHF, COPD, Dementia, HTN, Hypercholesterolemia and LA
Additional Past Medical History:
BPH
Past Surgical History: Reports Cardiac (Pacer/defibrillator, PTCA with stents, CABG)
Social History
Tobacco: Former Smoker
Alcohol: Occasional
Drug: None
Personal:
Living: Assisted Living
Employment: Retired
Family History
Family History: Not pertinent
Allergies / Home Medications
Allergies reflects when Allergies were last updated in [facility].
Home Medications with original date entered in [facility]
Allergy/Medication List:
Penicillin
Review of Systems
-
Unable to obtain full review of systems at this time due to: Dementia
History Source: Patient and Family
Constitutional: Reports Weight Loss (30 pounds in 5-month time)
EENT: Reports No Symptoms
Respiratory: Reports No Symptoms
Cardiac: Reports Chest Pain
Abdomen/GI: Reports Constipated
: Reports No Symptoms
Musculoskeletal: Reports No Symptoms
Skin: Reports No Symptoms
Neurological: Reports No Symptoms
Psych: Reports Dementia
Physical Exam
Vital Signs
Vital Signs
Temp Pulse Resp BP Pulse Ox
97.4 F 57 14 90/61 99
02/20/24 11:32 02/20/24 14:45 02/20/24 14:45 02/20/24 14:45 02/20/24 14:30
Physical Exam
General: Comfortable, Conversant, Poor Appetite and Other (Elderly)
HEENT: NormoCephalic and Anicteric
Respiratory: Clear
Cardiac: Murmur
GI: Soft, Non Tender and Non Distended
Musculoskeletal: No Clubbing, No Cyanosis and No Edema
Skin: Warm and Dry
Neuro: AO x 3
Psych: Calm and Apparent Dementia
Laboratory Results
-
02/20/24 11:39
02/20/24 11:39
Laboratory Results
PT 21.0 Sec (11.4-14.6) H 02/20/24 12:14
INR 1.83 02/20/24 12:14
Total Bilirubin 0.4 mg/dl (0.2-1.3) 02/20/24 11:39
AST 16 U/L (17-59) L 02/20/24 11:39
ALT < 10 U/L (0-50) 02/20/24 11:39
Alkaline Phosphatase 63 U/L (38-126) 02/20/24 11:39
Troponin I 0.045 ng/ml H* 08/12/24 11:39
Data Reviewed
-
Critical Care Time (in minutes): 30
Diagnostic Radiology: Report Reviewed by me and Discussed with Physician
CT Scan: Report Reviewed by me and Discussed with Physician
Lab Data: Labs Reviewed by me and Discussed with Physician
Old Records: Reviewed
Impression/Plan
-
IMPRESSION:
Patient is an 83-year-old male with history of CAD status post CABG hypertension, CHF, dementia, AICD presenting to [facility] with left-sided chest pain and hypotension.
PLAN:
Left-sided chest pain
� Left-sided chest pain for few weeks
� Consulted cardiology. Input appreciated
� EKG shows ventricular pacing
� Chest x-ray shows mild cardiomegaly, without acute pulmonary edema. Small right-sided pleural effusion. Previous CABG surgery and left-sided AICD. Mild subpleural subsegmental atelectasis and scarring in the lower lungs
�Elevated troponins in ER. Trend troponins to peak
� Monitor for worsening symptoms
Hypotension
�In ED systolics in 70s, IV fluids given. Blood pressure response of systolics in 90s
� Hold home furosemide, metoprolol, spironolactone, and Entresto in the setting of hypotension
� Continue to monitor
Stercoral colitis
� Secondary to opioid use
�CT abdomen shows severe acute stercoral colitis in the rectum with fecal impaction, rectal wall thickening, numerous ptosis and rectal.
� Colorectal surgery recommending enemas and potential digital impaction
� 3 soapy suds enemas ordered. Suppository in a.m.
� GI consulted. Input is appreciated
� Reassess for management of fecal disimpaction in a.m.
History of A-fib
� Continue Eliquis
� Currently patient is not on rate control, metoprolol held in the setting of hypotension
History of CHF
� Entresto held in the setting of hypotension
� Last echo in 06/02 showed reduced left ventricular systolic function. LVEF is 25 to 30%
� AICD placement 5 years ago
� Repeat echo pending
� Currently euvolemic
DVT prophylaxis�Eliquis
DNR/DNI
Medical power of employment law attorney is his daughter, Marsha-[phone]
--- NOTE | 2024-02-20 16:35 | CON.CAR ---
Addendum entered and electronically signed by Shubham Castellano MD 02/20/24 17:32:
I saw and examined the patient.
The MEAT APPRENTICE's note was reviewed and I agree with the note.
Comment: 83-year-old male (known to Dr. Paz, his primary banquet supervisor), with ischemic cardiomyopathy, HFrEF, CAD (CABG x 3 and prior PCI's), AICD, hypertension now hypotension requiring midodrine, type 2 diabetes mellitus, CKD, permanent atrial
fibrillation (apixaban), and significant dementia who presented to the emergency department with a chief complaint of chest pain. His chest pain is somewhat puzzling as it comes and goes and can last apparently for hours at a time. However, he
seems to point to his pacemaker/ICD as well as into his axilla. It is very mild and seems to be ongoing for the last several weeks. This does not appear to be cardiac in nature. I discussed this with the family as well as the patient and they are
in agreement.
- Elevated troponin, likley nonischemic myocardial injury
- Cont GDMT except for Entresto, re-evaluate in AM
- Aneurysm --> Vascular sx? cont BB
Original Note:
Consultation
Consultation Request
Date/Time Consultation Requested: 02/20/2024 16:30
Date/Time Consultation Performed: 02/20/2024 16:40
Requesting Provider: Dr. Rodriguez
Performing Provider: BRINA Solis for Dr. Castellano
Reason for Consultation: Chest pain
Medical History
-
Chief Complaint: Chest pain
History of Present Illness:
Froylan Hunt is an 83-year-old male (known to Dr. Paz, his primary banquet supervisor), with ischemic cardiomyopathy, HFrEF, CAD (CABG x 3 and prior PCI's), AICD, hypertension now hypotension requiring midodrine, type 2 diabetes mellitus, CKD, permanent
atrial fibrillation (apixaban), and significant dementia who presented to the emergency department with a chief complaint of chest pain. He points to behind his AICD where the pain is located. He thinks it may have lasted hours but is unsure. It
gets worse with a deep breath. It does not get worse with movement nor palpation. He denies associated symptoms of shortness of breath, dizziness, and diaphoresis. This HPI is limited as he has significant dementia.
Past Medical History
Past Medical History: Arrhythmias (Permanent atrial fibrillation), CAD (CABG x 3, multiple PCI's), CHF (ICM, HFrEF), Hypercholesterolemia, NIDDM, Renal Failure (CKD stage III) and Other (Chronic hypotension, chronic memory impairment, anemia of
chronic disease)
Past Surgical History: Cardiac and Orthopedic
Social History
Tobacco: Former Smoker
Alcohol: None
Drug: None
Living: [facility] ([facility])
Employment: Retired
Family History
Family History: Unable to Obtain
Allergies / Home Medications
Allergy/AdvReac Type Severity Reaction Status Date / Time
Penicillins Allergy Rash Verified 02/20/24 11:32
�Medication �Instructions �Recorded �Confirmed �Type
finasteride 5 mg tablet (Proscar) 5 mg PO DAILY prostate 04/26/22 02/20/24 History
sacubitril 24 mg-valsartan 26 mg 1 tab PO BID Heart 04/26/22 02/20/24 History
tablet (Entresto) disease/condition
spironolactone 25 mg tablet 12.5 mg PO DAILY Blood pressure 04/26/22 02/20/24 History
tamsulosin 0.4 mg capsule (Flomax) 0.4 mg PO HS bladder 04/26/22 02/20/24 History
cholecalciferol (vitamin D3) 25 25 mcg PO DAILY Supplement 09/17/22 02/20/24 History
mcg (1,000 unit) tablet (Vitamin
D3)
cyanocobalamin (vitamin B-12) 1,000 mcg PO DAILY Supplement 09/17/22 02/20/24 History
1,000 mcg tablet,extended release
pravastatin 40 mg tablet 40 mg PO HS High cholesterol 09/17/22 02/20/24 History
ranolazine 500 mg tablet,extended 500 mg PO BID Heart 09/17/22 02/20/24 History
release,12 hr disease/condition
apixaban 5 mg tablet (Eliquis) 5 mg PO BID Blood Clot 05/28/23 02/20/24 History
Prevention/Tx
furosemide 20 mg tablet 20 mg PO DAILY Fluid 05/28/23 02/20/24 History
Retention/Swelling
metoprolol succinate 50 mg 50 mg PO DAILY Blood Pressure 05/28/23 02/20/24 History
tablet,extended release 24 hr
miconazole nitrate 2 % topical 1 applic topical TIDPRN PRN groin 05/28/23 02/20/24 History
powder
polyethylene glycol 3350 17 gram 17 g PO DAILY Gastrointestinal 05/28/23 02/20/24 History
oral powder packet (Miralax) Issue
sennosides 8.6 mg tablet (senna) 17.2 mg PO HS Constipation 05/28/23 02/20/24 History
midodrine 5 mg tablet 10 mg (2 x 5 mg) PO 06/03/23 02/20/24 Rx
TID@0800,1300,1800 #60 tabs
Cbd Cream 2500mg Tincture 0.5 ml PO BID 02/20/24 02/20/24 History
clotrimazole-betamethasone 1 1 applic topical BID groin 02/20/24 02/20/24 History
%-0.05 % topical cream
oxycodone myristate 13.5 mg 13.5 mg PO BID 02/20/24 02/20/24 History
capsule sprinkle extend release
12hr(DON'T CRUSH) (Xtampza ER)
zinc oxide 13 % topical cream 1 applic topical BID buttocks and 02/20/24 02/20/24 History
(Desitin Daily Defense) perineum
Review of Systems
-
History Source: Patient
All other systems: Negative unless noted
Constitutional: Fatigue
EENT: No Symptoms
Respiratory: No Symptoms
Cardiac: Chest Pain
Abdomen/GI: Constipated
: No Symptoms
Musculoskeletal: No Symptoms
Skin: No Symptoms
Neurological: No Symptoms
Endocrine: No Symptoms
Hematologic/Lymphatic: No Symptoms
Physical Exam
Vital Signs
Temp Pulse Resp BP Pulse Ox
97.4 F 57 15 107/66 99
02/20/24 11:32 02/20/24 16:00 02/20/24 16:00 02/20/24 16:00 02/20/24 15:15
Lab Results
02/20/24 11:39
02/20/24 11:39
Troponin I 0.045 ng/ml H* 02/20/24 11:39
Physical Exam
General: Well Developed, Well Nourished, No Apparent Distress and Comfortable
HEENT: Normocephalic, Anicteric and Moist Mucous Membranes
Respiratory: Clear and Non Labored Respirations
Cardiac: S1/S2 and Regular Rhythm
Breast: Deferred by me
GI: Soft, Non Tender, Non Distended and Normal Bowel Sounds
Rectal: Deferred by Provider
Genito-urinary: No Costovertebral Tender
Musculoskeletal: No Clubbing, No Cyanosis and No Edema
Skin: Warm and Dry
Neuro: AO x 3
Hematologic/Lymphatic: No Lymphadenopathy
Psych: Calm
Impression / Plan
-
BACKGROUND: 83M ischemic cardiomyopathy, HFrEF, CAD (CABG x 3 and prior PCI's), AICD, hypertension now hypotension requiring midodrine, type 2 diabetes mellitus, CKD stage III, permanent atrial fibrillation (apixaban), and significant dementia who
presented to the emergency department with a chief complaint of chest pain.
Planer Off Bearer: Dr. Paz
Abnormal troponin, likely nonischemic myocardial injury
-Trend to peak
-EKG paced rhythm
HFrEF (LVEF 25 to 30%), chronic
-He is not short of breath and his weight is stable
-GDMT as tolerated
-ACEI/ARB: Hold Entresto with hypotension
-MRA: Spironolactone 12.5 mg daily
-Beta-whitney: Metoprolol succinate 50 mg daily
-SGLT2: Can consider
-Diuretic: He needs furosemide 20 mg to maintain euvolemia
-AICD: Medtronic
-Trend daily weight, I/O during admission
CAD
-Prior CABG and multiple PCI's
-Continue medical management
Permanent atrial fibrillation
-Rate controlled
-Oral Anticoagulation: Apixaban 5 mg twice daily
-[id number]: score at least 6 (Heart failure, HTN, age 75 or more, Diabetes Mellitus, Vascular disease)
HTN (history) now with chronic hypotension requiring midodrine
-Hold Entresto and continue other medications for now
Dyslipidemia
Dementia
Moderate eccentric mitral regurgitation (05/2023), update echocardiogram
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
Severe acute sterocoral colitis with fecal impaction, GI consulted
Chronic ambulatory dysfunction, wheelchair-bound
Data Reviewed
-
EKG: Report Reviewed by me (Ventricular paced rhythm, rate 69)
Radiology: Report Reviewed by me (CXR: Suspected small right pleural effusion.)
CT Scan: Report Reviewed by me (CTA as documented)
[2024-02-20] MEDS: ProAmatine PO (17:42)
--- NOTE | 2024-02-20 20:27 | CON.CRS ---
Consultation
-
Date/Time Consultation Requested: 02/20/2024 @14:23
Date/Time Consultation Performed: 02/20/2024 @17:45
Requesting Provider: Anabell Murray DO
Performing Provider: Kenneth Tanner MD
Reason for Consultation: Stercoral proctitis
Medical History
-
Chief Complaint: Chest pain
History of Present Illness:
83-year-old male with dementia, CAD, atrial fibrillation on Eliquis and multiple medical problems, who presents to the ED from the memory care unit with chest pain and underwent a CTA that revealed stercoral procitits. He is a poor historian and
the history is obtained from his daughter at the bedside. He has a history of chronic constipation and long-acting oxycodone (Myristate 13.5 mg bid) for chronic neuropathic pain. For his bowels he takes Miralax and Senna as needed. He is unsure when
his last bowel movement was. He denies any abdominal pain or rectal pain. No abdominal pain, nausea or vomiting.
Past Medical History
Past Medical History: Arrhythmias (atrial fibrillation), CAD, CHF, COPD, HTN, Hypercholesterolemia, Psychiatric (dementia) and Other (chronic pain, benign prostatic hypertrophy)
Past Surgical History: Cardiac (pacer/defibrillator, coronary stents, CABG)
Social History
Tobacco: Former Smoker
Alcohol: Occasional
Drug: None
Personal:
Living: Assisted Living
Family History
Family History: Reviewed & Not Pertinent
Allergies / Home Medications
Allergy/AdvReac Type Severity Reaction Status Date / Time
Penicillins Allergy Rash Verified 02/20/24 11:32
�Medication �Instructions �Recorded �Confirmed �Type
finasteride 5 mg tablet (Proscar) 5 mg PO DAILY prostate 04/26/22 02/20/24 History
sacubitril 24 mg-valsartan 26 mg 1 tab PO BID Heart 04/26/22 02/20/24 History
tablet (Entresto) disease/condition
spironolactone 25 mg tablet 12.5 mg PO DAILY Blood pressure 04/26/22 02/20/24 History
tamsulosin 0.4 mg capsule (Flomax) 0.4 mg PO HS bladder 04/26/22 02/20/24 History
cholecalciferol (vitamin D3) 25 25 mcg PO DAILY Supplement 09/17/22 02/20/24 History
mcg (1,000 unit) tablet (Vitamin
D3)
cyanocobalamin (vitamin B-12) 1,000 mcg PO DAILY Supplement 09/17/22 02/20/24 History
1,000 mcg tablet,extended release
pravastatin 40 mg tablet 40 mg PO HS High cholesterol 09/17/22 02/20/24 History
ranolazine 500 mg tablet,extended 500 mg PO BID Heart 09/17/22 02/20/24 History
release,12 hr disease/condition
apixaban 5 mg tablet (Eliquis) 5 mg PO BID Blood Clot 05/28/23 02/20/24 History
Prevention/Tx
furosemide 20 mg tablet 20 mg PO DAILY Fluid 05/28/23 02/20/24 History
Retention/Swelling
metoprolol succinate 50 mg 50 mg PO DAILY Blood Pressure 05/28/23 02/20/24 History
tablet,extended release 24 hr
miconazole nitrate 2 % topical 1 applic topical TIDPRN PRN groin 05/28/23 02/20/24 History
powder
polyethylene glycol 3350 17 gram 17 g PO DAILY Gastrointestinal 05/28/23 02/20/24 History
oral powder packet (Miralax) Issue
sennosides 8.6 mg tablet (senna) 17.2 mg PO HS Constipation 05/28/23 02/20/24 History
midodrine 5 mg tablet 10 mg (2 x 5 mg) PO 06/03/23 02/20/24 Rx
TID@0800,1300,1800 #60 tabs
Cbd Cream 2500mg Tincture 0.5 ml PO BID 02/20/24 02/20/24 History
clotrimazole-betamethasone 1 1 applic topical BID groin 02/20/24 02/20/24 History
%-0.05 % topical cream
oxycodone myristate 13.5 mg 13.5 mg PO BID 02/20/24 02/20/24 History
capsule sprinkle extend release
12hr(DON'T CRUSH) (Xtampza ER)
zinc oxide 13 % topical cream 1 applic topical BID buttocks and 02/20/24 02/20/24 History
(Desitin Daily Defense) perineum
Review of Systems
-
History Source: Family
All other systems: Negative unless noted
A 10 point review of systems was completed, and was negative except as per HPI.
Physical Exam
Vital Signs
Temp 97.7 F 02/20/24 19:28
Pulse 57 02/20/24 19:28
Resp Rate 18 02/20/24 19:28
Blood pressure 110/59 02/20/24 19:28
SaO2 100 02/20/24 19:28
02/19/24 02/20/24 02/21/24
06:59 06:59 06:59
Actual Weight 71.123 kg
Body Mass Index (BMI) 20.7
Lab Results / Allergies
02/20/24 11:39
02/20/24 11:39
WBC 6.0 10^3/uL (4.8-10.8) 02/20/24 11:39
Hgb 9.2 g/dL (13.0-18.0) L 02/20/24 11:39
Hct 27.7 % (39.0-52.0) L 02/20/24 11:39
Plt Count 315 10^3/uL (130-400) 02/20/24 11:39
Abs Immat Gran (auto) 0.0 10^3/uL (0-0.05) 02/20/24 11:39
Neutrophils % 76.7 % (42.2-75.2) H 02/20/24 11:39
Allergy/AdvReac Type Severity Reaction Status Date / Time
Penicillins Allergy Rash Verified 02/20/24 11:32
Physical Exam
General: Well Developed, Well Nourished and No Apparent Distress
HEENT: Anicteric
GI: Soft, Non Tender and Non Distended
Rectal: Other (soft impaction. nontender)
Musculoskeletal: No Edema
Skin: Warm
Neuro: Awake and Alert
Psych: Calm
Data Reviewed
-
CT Scan: Image Personally Visualized and interpreted, Report Reviewed by me, Discussed with Patient and Discussed with Family
Labs: Labs Reviewed by me, Discussed with Patient and Discussed with Family
Assessment / Plan
-
Stercoral proctitis on CT. There is inflammation and a moderate amount of stool in the rectum. ? 1 area of air in the rectal wall.
I performed a digital rectal exam and there is no significant impaction. I suspect his symptoms will improve with enemas and laxatives.
GI has been consulted. Will follow peripherally.
[2024-02-20] MEDS: SENOKOT 17.2 MG PO (21:10)
[2024-02-20] MEDS: OXYCONTIN (CONTROLLED RELEASE) 15 MG PO (21:10)
[2024-02-20] MEDS: ELIQUIS 5 MG PO (21:10)
[2024-02-20] MEDS: FLOMAX 0.4 MG PO (21:10)
[2024-02-20] MEDS: DESITIN MAXIMUM STRENGTH PASTE 1 APPLIC TOPICAL (21:10)
[2024-02-20] MEDS: LOTRISONE CREAM 1 APPLIC TOPICAL (21:11)
[2024-02-20] MEDS: DESENEX/MITRAZOL/ZEASORB 1 APPLIC TOPICAL (21:12)
[2024-02-20] MEDS: PRAVACHOL 40 MG PO (21:16)
[2024-02-20] MEDS: RANEXA EXTENDED RELEASE 500 MG PO (21:16)
--- NOTE | 2024-02-20 22:56 | PTCARENOTE ---
pt received 3 enemas as ordered- had very large soft bm on bed farrar- vpaced- ax1- bed alrm in place=- afebrile bp wnl
[2024-02-21 03:05] VITALS: BP 86/49
[2024-02-21 04:30] VITALS: BP 118/62
[2024-02-21] MEDS: ANUSOL HC 25 MG RECTAL (05:21)
[2024-02-21 06:00] VITALS: BMI 21.0
--- NOTE | 2024-02-21 07:40 | W.PN.HOSP.TC ---
Today's Communication/Plan
-
.
Assessment / Plan
Assessment / Plan
Patient is an 83-year-old male with history of CAD status post CABG hypertension, CHF, dementia, AICD presenting to [facility] with left-sided chest pain and hypotension.
PLAN:
Left-sided chest pain
� Left-sided chest pain for few weeks
� Consulted cardiology. Input appreciated
� EKG shows ventricular pacing
� Chest x-ray shows mild cardiomegaly, without acute pulmonary edema. Small right-sided pleural effusion. Previous CABG surgery and left-sided AICD. Mild subpleural subsegmental atelectasis and scarring in the lower lungs
�Elevated troponins in ER. Trend troponins to peak
� Monitor for worsening symptoms
Hypotension
�In ED systolics in 70s, IV fluids given. Blood pressure response of systolics in 90s
� Hold home furosemide, spironolactone, and Entresto in the setting of hypotension
-Continue metoprolol
� Continue to monitor
Stercoral colitis
� Secondary to opioid use
�CT abdomen shows severe acute stercoral colitis in the rectum with fecal impaction, rectal wall thickening, numerous ptosis and rectal.
� Colorectal surgery consulted. CLEOPATRA exam showed minimal impaction.
� 3 soapy suds enemas ordered. Suppository today. Miralax + senna daily.
- 2x large bowel movements overnight
� GI consulted. Input is appreciated
History of A-fib
� Continue Eliquis
�Cardiology on board. Recommended continuation of metoprolol.
History of CHF
� Entresto held in the setting of hypotension
� Last echo in 06/02 showed reduced left ventricular systolic function. LVEF is 25 to 30%
� AICD placement 5 years ago
� Repeat echo today. pending results
� Currently euvolemic
DVT prophylaxis�Eliquis
DNR/DNI
Medical power of transport tank technician is his daughter, Marsha-[phone]
Anticipated Discharge: Today
Subjective/Interval History
-
Date of Service: February 21, 2024
Patient reports feeling well today. He reports no chest pain currently. Per nursing, pt had large bowel movements last night after enemas.
Objective Data
-
Labs:
Laboratory Results
02/21/24
06:00
WBC Pending
Hgb Pending
Hct Pending
Plt Count Pending
Sodium Pending
Potassium Pending
Chloride Pending
Carbon Dioxide Pending
BUN Pending
Creatinine Pending
Glucose Pending
Calcium Pending
Total Bilirubin Pending
AST Pending
ALT Pending
Alkaline Phosphatase Pending
Vital Signs:
Vital Signs
Temp Pulse Resp BP Pulse Ox
97.7 F 56 20 118/62 96
02/21/24 03:05 02/21/24 04:30 02/21/24 04:30 02/21/24 04:30 02/21/24 03:05
I&O
02/20/24 02/21/24 02/22/24
06:59 06:59 06:59
Intake Total 240 / 240
Output Total 1999 / 1999
Balance -1760 / -1760
Review of Systems
-
Unable to obtain full review of systems at this time due to: Dementia
History Source: Patient
All other systems: Reviewed and negative
Physical Exam
-
General: Well Developed, No Apparent Distress and Comfortable
HEENT: Normocephalic and Atraumatic
GI: Soft, Nontender and Nondistended
Musculoskeletal: No Clubbing, No Cyanosis and No Edema
Skin: Warm and Dry
Neuro: Awake, Alert and Oriented
Psych: Calm
Data Reviewed
-
Total Time Spent with Patient (in minutes): 30
Medical Tests (Nuc Med, Echo etc): Report Reviewed by me and Discussed with Physician
Labs: Labs Reviewed by me and Discussed with Physician
Old Records: Reviewed
[2024-02-21] MEDS: OXYCONTIN (CONTROLLED RELEASE) 15 MG PO (09:31)
[2024-02-21] MEDS: PROSCAR 5 MG PO (09:31)
[2024-02-21] MEDS: RANEXA EXTENDED RELEASE 500 MG PO (09:31)
[2024-02-21] MEDS: VITAMIN B-12 1000 MCG PO (09:31)
[2024-02-21] MEDS: ELIQUIS 5 MG PO (09:31)
[2024-02-21] MEDS: MIRALAX 17 GRAMS PO (09:31)
[2024-02-21] MEDS: LOTRISONE CREAM 1 APPLIC TOPICAL (09:32)
[2024-02-21] MEDS: DESENEX/MITRAZOL/ZEASORB 1 APPLIC TOPICAL (09:32)
[2024-02-21] MEDS: DESITIN MAXIMUM STRENGTH PASTE 1 APPLIC TOPICAL (09:33)
[2024-02-21] MEDS: ProAmatine 10 MG PO ×2 (09:38→13:04)
[2024-02-21] MEDS: LASIX 20 MG PO (09:39)
[2024-02-21] MEDS: TOPROL XL 50 MG PO (09:40)
--- NOTE | 2024-02-21 09:54 | CON.GI ---
Documented by User: Angelica Quintana MD, Resident 02/21/24 10:27
Medical History
Chief Complaint / HPI
Chief Complaint: Chest pain
History of Present Illness:
Patient is an 83yo M with PMH of CAD s/p CABG, HI s/p stent, hypertension, dementia, hyperlipidemia, AICD, COPD, CHF, A-fib on Eliquis, BPH, CKD, chronic neuropathy presenting from memory care unit with left-sided chest pain. He was initially
hypotensive on admission. Patient's history is limited due to dementia.
He reports an intermittent chest pain for past several days which is better now. He does not complain of any shortness of breath, abdominal pain, nausea, vomiting, dizziness. He has a history of chronic constipation secondary to opioid use for
neuropathic pain. CTA yesterday revealed stercoral proctitis. He received enema x3 and is on Miralax + senna. He has had two large BMs since yesterday evening.
Cardiology is following for chest pain and elevated troponin.
Past Medical History
Past Medical History: Arrhythmias, CAD, COPD, HTN, Hypercholesterolemia, HI, Renal Failure and Other (chronic neuropathy, BPH, dementia)
Past Surgical History: Cardiac (pacer/defibrillator, coronary stents, CABG)
Social History
Tobacco: Former Smoker
Alcohol: Occasional
Drug: None
Personal:
Living: Assisted Living
Family History
Family History: Reviewed & Not Pertinent
Allergies / Home Medications
Allergy/AdvReac Type Severity Reaction Status Date / Time
Penicillins Allergy Rash Verified 02/20/24 11:32
�Medication �Instructions �Recorded
finasteride 5 mg tablet (Proscar) 5 mg PO DAILY prostate 04/26/22
sacubitril 24 mg-valsartan 26 mg 1 tab PO BID Heart 04/26/22
tablet (Entresto) disease/condition
spironolactone 25 mg tablet 12.5 mg PO DAILY Blood pressure 04/26/22
tamsulosin 0.4 mg capsule (Flomax) 0.4 mg PO HS bladder 04/26/22
cholecalciferol (vitamin D3) 25 25 mcg PO DAILY Supplement 09/17/22
mcg (1,000 unit) tablet (Vitamin
D3)
cyanocobalamin (vitamin B-12) 1,000 mcg PO DAILY Supplement 09/17/22
1,000 mcg tablet,extended release
pravastatin 40 mg tablet 40 mg PO HS High cholesterol 09/17/22
ranolazine 500 mg tablet,extended 500 mg PO BID Heart 09/17/22
release,12 hr disease/condition
apixaban 5 mg tablet (Eliquis) 5 mg PO BID Blood Clot 05/28/23
Prevention/Tx
furosemide 20 mg tablet 20 mg PO DAILY Fluid 05/28/23
Retention/Swelling
metoprolol succinate 50 mg 50 mg PO DAILY Blood Pressure 05/28/23
tablet,extended release 24 hr
miconazole nitrate 2 % topical 1 applic topical TIDPRN PRN groin 05/28/23
powder
polyethylene glycol 3350 17 gram 17 g PO DAILY Gastrointestinal 05/28/23
oral powder packet (Miralax) Issue
sennosides 8.6 mg tablet (senna) 17.2 mg PO HS Constipation 05/28/23
midodrine 5 mg tablet 10 mg (2 x 5 mg) PO 06/03/23
TID@0800,1300,1800 #60 tabs
Cbd Cream 2500mg Tincture 0.5 ml PO BID Pain 02/20/24
clotrimazole-betamethasone 1 1 applic topical BID groin 02/20/24
%-0.05 % topical cream
oxycodone myristate 13.5 mg 13.5 mg PO BID Pain 02/20/24
capsule sprinkle extend release
12hr(DON'T CRUSH) (Xtampza ER)
zinc oxide 13 % topical cream 1 applic topical BID buttocks and 02/20/24
(Desitin Daily Defense) perineum
Review of Systems
-
History Source: Patient
All other systems: A 12 pt ROS was Negative except as stated above in HPI
Vital Signs
Temp Pulse Resp BP Pulse Ox
97.7 F 57 20 86/46 96
02/21/24 03:05 02/21/24 09:38 02/21/24 04:30 02/21/24 09:38 02/21/24 03:05
Physical Exam
Exam
General: Well Developed and No Apparent Distress
HEENT: Anicteric and Moist Mucous Membranes
Respiratory: Clear
Cardiac: S1/S2
GI: Soft, Non Tender, Non Distended and Normal Bowel Sounds
Rectal: Brown and Hem Negative
Neuro: Awake, Alert, Oriented and AO x 3
Psych: Calm
Results
WBC 6.0 10^3/uL (4.8-10.8) 02/20/24 11:39
Hgb 9.2 g/dL (13.0-18.0) L 02/20/24 11:39
Hct 27.7 % (39.0-52.0) L 02/20/24 11:39
MCV 92.6 fL (80.0-94.0) 02/20/24 11:39
Plt Count 315 10^3/uL (130-400) 02/20/24 11:39
Absolute Neuts (auto) 4.6 10^3/uL (1.4-6.5) 02/20/24 11:39
PT 21.0 Sec (11.4-14.6) H 02/20/24 12:14
INR 1.83 02/20/24 12:14
Sodium 137 mmol/L (135-145) 02/20/24 11:39
Potassium 4.2 mmol/L (3.5-5.1) 02/20/24 11:39
Chloride 103 mmol/L (98-107) 02/20/24 11:39
Carbon Dioxide 25 mmol/L (22-30) 02/20/24 11:39
BUN 30 mg/dl (9-20) H 02/20/24 11:39
Creatinine 1.2 mg/dL (0.7-1.3) 02/20/24 11:39
Calcium 9.0 mg/dl (8.4-10.2) 02/20/24 11:39
Total Bilirubin 0.4 mg/dl (0.2-1.3) 02/20/24 11:39
AST 16 U/L (17-59) L 02/20/24 11:39
ALT < 10 U/L (0-50) 02/20/24 11:39
Alkaline Phosphatase 63 U/L (38-126) 02/20/24 11:39
Diagnostic Image Results: (02/20/2024)
CHEST CTA:
1. LARGE 2.4 cm SACCULAR ANEURYSM protruding inferolaterally from the DISTAL THORACIC AORTIC ARCH.
2. Previous CABG surgery.
3. Mild cardiomegaly.
4. MODERATE-SIZED RIGHT PLEURAL EFFUSION with adjacent compressive atelectasis of the basilar segments of the right lower lobe.
5. Minimal left pleural effusion.
ABDOMEN and PELVIS CTA:
1. SEVERE ACUTE STERCORAL COLITIS in the RECTUM with fecal impaction, rectal wall thickening, and pneumatosis in the rectal wall.
2. Moderate diffuse colonic distention consistent with constipation.
3. Small volume of abdominal and pelvic ascites.
4. Moderate chronic bilateral renal disease.
5. Cholelithiasis.
6. Severe calcific atherosclerotic plaque in the abdominal aorta.
7. 70% diameter stenosis in the proximal right main renal artery.
8. Fusiform infrarenal abdominal aortic aneurysm (2.2 cm diameter).
9. Moderate to severe anasarca.
Prior GI Procedures:
EGD:
Colonoscopy:
Assessment / Plan
-
Patient is an 83yo M with PMH of CAD s/p CABG, HI s/p stent, hypertension, dementia, hyperlipidemia, AICD, COPD, CHF, A-fib on Eliquis, BPH, CKD, chronic neuropathy presenting from memory care unit with left-sided chest pain and hypotension on
admission. CTA showed SEVERE ACUTE STERCORAL COLITIS in the RECTUM with fecal impaction, rectal wall thickening, and pneumatosis in the rectal wall.
Patient does not complain of abd pain, n/v, fever/chills. He received enema x3 and is on Miralax + senna. He has had two large BMs since yesterday evening.
On P/E, no TTP. No rebound or guarding. No fecal impaction on CLEOPATRA. Occult heme is negative.
Recommendations:
- Continue bowel regimen with Miralax and Senna
- Consider Abd x-ray after another BM to confirm resolution of fecal impaction
- Keep on clears for now, may advance to full if impaction resolved
-
-
Thank you for consultation and allowing me to participate in the patient's care. Please call the lamination spinner GI physician during the after hours with any questions or concerns.

Documented by User: BRINA Koenig 02/21/24 15:58
Consultation
-
Date/Time Consultation Requested: 02/20/24 1620
Date/Time Consultation Performed: 02/21/24 0930
Requesting Provider: Fallon Henley DO
Performing Provider: BRINA Horvath, Wm Lara MD
Reason for Consultation: fecal impaction
Medical History
Chief Complaint / HPI
History of Present Illness:
Patient is an 83yo M with PMH of CAD s/p CABG, HI s/p stent, hypertension, dementia, hyperlipidemia, AICD, COPD, CHF, A-fib on Eliquis, BPH, CKD, chronic neuropathy presenting from memory care unit with left-sided chest pain. He was initially
hypotensive on admission. Patient's history is limited due to dementia.
He reports an intermittent chest pain for past several days which is better now. He does not complain of any shortness of breath, abdominal pain, nausea, vomiting, dizziness. He has a history of chronic constipation secondary to opioid use for
neuropathic pain. CTA yesterday revealed stercoral proctitis. He received enema x3 and is on Miralax + senna. He has had two large BMs since yesterday evening. Asked to see for constipation. In reviewing with patient some limited history due to
dementia but admits to stool every few day. He was unsure about prior GI testing in past.
Cardiology is following for chest pain and elevated troponin.
Review of Systems
-
Abdomen/GI: Reports Constipated
Physical Exam
Exam
Rectal: Other (enlarged prostate no impaction)
Neuro: Other (forgetful)
Results
WBC 6.0 10^3/uL (4.8-10.8) 02/20/24 11:39
Hgb 9.2 g/dL (13.0-18.0) L 02/20/24 11:39
Hct 27.7 % (39.0-52.0) L 02/20/24 11:39
MCV 92.6 fL (80.0-94.0) 02/20/24 11:39
Plt Count 315 10^3/uL (130-400) 02/20/24 11:39
Absolute Neuts (auto) 4.6 10^3/uL (1.4-6.5) 02/20/24 11:39
PT 21.0 Sec (11.4-14.6) H 02/20/24 12:14
INR 1.83 02/20/24 12:14
Sodium 137 mmol/L (135-145) 02/20/24 11:39
Potassium 4.2 mmol/L (3.5-5.1) 02/20/24 11:39
Chloride 103 mmol/L (98-107) 02/20/24 11:39
Carbon Dioxide 25 mmol/L (22-30) 02/20/24 11:39
BUN 30 mg/dl (9-20) H 02/20/24 11:39
Creatinine 1.2 mg/dL (0.7-1.3) 02/20/24 11:39
Calcium 9.0 mg/dl (8.4-10.2) 02/20/24 11:39
Total Bilirubin 0.4 mg/dl (0.2-1.3) 02/20/24 11:39
AST 16 U/L (17-59) L 02/20/24 11:39
ALT < 10 U/L (0-50) 02/20/24 11:39
Alkaline Phosphatase 63 U/L (38-126) 02/20/24 11:39
Diagnostic Image Results: (02/20/2024)
CHEST CTA:
1. LARGE 2.4 cm SACCULAR ANEURYSM protruding inferolaterally from the DISTAL THORACIC AORTIC ARCH.
2. Previous CABG surgery.
3. Mild cardiomegaly.
4. MODERATE-SIZED RIGHT PLEURAL EFFUSION with adjacent compressive atelectasis of the basilar segments of the right lower lobe.
5. Minimal left pleural effusion.
ABDOMEN and PELVIS CTA:
1. SEVERE ACUTE STERCORAL COLITIS in the RECTUM with fecal impaction, rectal wall thickening, and pneumatosis in the rectal wall.
2. Moderate diffuse colonic distention consistent with constipation.
3. Small volume of abdominal and pelvic ascites.
4. Moderate chronic bilateral renal disease.
5. Cholelithiasis.
6. Severe calcific atherosclerotic plaque in the abdominal aorta.
7. 70% diameter stenosis in the proximal right main renal artery.
8. Fusiform infrarenal abdominal aortic aneurysm (2.2 cm diameter).
9. Moderate to severe anasarca.
Prior GI Procedures:
EGD: unknown
Colonoscopy: unknown
Assessment / Plan
-
Patient is an 83yo M with PMH of CAD s/p CABG, HI s/p stent, hypertension, dementia, hyperlipidemia, AICD, COPD, CHF, A-fib on Eliquis, BPH, CKD, chronic neuropathy presenting from memory care unit with left-sided chest pain and hypotension on
admission. CTA showed SEVERE ACUTE STERCORAL COLITIS in the RECTUM with fecal impaction, rectal wall thickening, and pneumatosis in the rectal wall.
Patient does not complain of abd pain, n/v, fever/chills. He received enema x3 and is on Miralax + senna. He has had two large BMs since yesterday evening.
On P/E, no TTP. No rebound or guarding. No fecal impaction on CLEOPATRA. Occult heme is negative.
-fecal impaction
-CT with stercoral colitis and infection with some pneumatosis rectal wall
-anemia
-chest pain on admission
-afib on Eliquis
Recommendations:
current rectal exam with no impaction and enlarged prostate
- Continue bowel regimen with Miralax and Senna on discharge
pt for discharge today returns with any bowel issues
limit narcotics as able
trend hbg if persists consider OP follow up
cont Eliquis
appreciate colorectal consultation with note pneumatosis on rectal wall
s/p cards eval
Pt seen with Resident and discharged prior to Dr. Linton evaluation. Agree with above. Impaction is setting of chronic narcotic use. Now cleared on follow up rectal exam today s/p surgical evaluation for pneumatosis on wall. WBC normal 5.7, no
fever abdominal pain or rectal pain on exam. continue bowel regiment to prevent recurrent constipation. . limit narcotics as able. Return with any issues. Pt returned to [facility] care unit.
--- NOTE | 2024-02-21 10:33 | PTCARENOTE ---
During review of telemetry alarms, this RN noted that this pt had a 12-beat run of vtach at 0254 on 02/20. MD notified, orders for magnesium levels to be drawn placed. Plan of care ongoing.
[2024-02-21 11:04] LABS: % Basophils 0.7 % (0-2); % Eosinophils 1.1 % (0-6); % Immature Granulocytes 0.5 % (0-0.5); % Lymphocytes 13.5 % (20.5-51.1); % Monocytes 5.7 % (1.7-9.3); % Neutrophils 78.5 % (42.2-75.2); Absolute Eosinophils 0.1 10^3/uL (0-0.7); Absolute Lymphocytes 0.8 10^3/uL (1.2-3.4); Absolute Monocytes 0.3 10^3/uL (0.1-0.6); Absolute Neutrophils 4.4 10^3/uL (1.4-6.5); Hematocrit 29.7 % (39.0-52.0); Hemoglobin 9.9 g/dL (13.0-18.0); Mean Corp Hgb Conc. 33.3 g/dL (33.0-37.0); Mean Corpuscular Hgb 30.7 pg (27.0-31.0); Mean Corpuscular Volume 92.2 fL (80.0-94.0); Nucleated Red Blood Cells % 0 % (-); Platelet Count 318 10^3/uL (130-400); Red Blood Cell Count 3.22 10^6/uL (4.70-6.10); Red Cell Dist. Width 17.4 % (11.5-14.5); White Blood Cell Count 5.7 10^3/uL (4.8-10.8)
[2024-02-21 11:46] LABS: ALT (SGPT) < 10 U/L (0-50); AST (SGOT) 16 U/L (17-59); Albumin 3.1 g/dl (3.5-5.0); Alkaline Phosphatase 61 U/L (38-126); Blood Urea Nitrogen 24 mg/dl (9-20); Calcium 8.8 mg/dl (8.4-10.2); Carbon Dioxide 25 mmol/L (22-30); Chloride 104 mmol/L (98-107); Estimated Creatinine Clearance 51 ml/min; Glucose 142 mg/dl (70-99); Magnesium 1.9 mg/dl (1.6-2.3); Potassium 4.1 mmol/L (3.5-5.1); Sodium 134 mmol/L (135-145); Total Bilirubin 0.5 mg/dl (0.2-1.3); Total Protein 5.5 g/dl (6.3-8.2); eGFR > 60.00
[2024-02-21 11:50] VITALS: BP 93/52
--- NOTE | 2024-02-21 11:59 | W.PN.CD ---
Today's Communication / Plan
-
Will resume Entresto
We will sign off
Impression / Plan
-
Background: 83M significant dementia, ischemic cardiomyopathy, HFrEF, CAD (CABG x 3 and prior PCI's), ICD, hypertension now hypotension requiring midodrine, type 2 diabetes mellitus, CKD stage III, and permanent atrial fibrillation (apixaban) who
presented to the emergency department with a chief complaint of chest pain.
Appointment Coordinator: Dr. Paz
Abnormal troponin => nonischemic myocardial injury. We do not plan further evaluation
HFrEF (LVEF 25 to 30%), chronic, well controlled
-He is not short of breath and his weight is stable
-GDMT as tolerated
-ACEI/ARB: Will resume Entresto
-MRA: Spironolactone 12.5 mg daily
-Beta-whitney: Metoprolol succinate 50 mg daily
-SGLT2: Can consider
-Diuretic: He needs furosemide 20 mg to maintain euvolemia
-ICD: Medtronic
-Trend daily weight, I/O during admission
CAD
-Prior CABG and multiple PCI's
-Continue medical management
Permanent atrial fibrillation
-Rate controlled
-Oral Anticoagulation: Apixaban 5 mg twice daily
-[id number]: score at least 6 (Heart failure, HTN, age 75 or more, Diabetes Mellitus, Vascular disease)
HTN (history) now with chronic hypotension requiring midodrine
-Hold Entresto and continue other medications for now
PAD: SANDEE, Aortic aneurysm => he will be treated conservatively
Dyslipidemia
Dementia
Moderate eccentric mitral regurgitation (05/2023), update echocardiogram
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
Severe acute stercoral colitis with fecal impaction, GI consulted => bowl regimen
Chronic ambulatory dysfunction, wheelchair-bound
Subjective: Denies CP or dyspnea
Physical Exam
Vital Signs/Labs
Vital Signs
Temp Pulse Resp BP Pulse Ox
97.7 F 57 20 86/46 96
02/21/24 03:05 02/21/24 09:38 02/21/24 04:30 02/21/24 09:38 02/21/24 03:05
02/20/24 02/21/24 02/22/24
06:59 06:59 06:59
Actual Weight 72.257 kg
02/21/24 10:39
02/21/24 10:39
PT 21.0 Sec (11.4-14.6) H 02/20/24 12:14
INR 1.83 02/20/24 12:14
Magnesium 1.9 mg/dl (1.6-2.3) 02/21/24 10:39
LAB Results
02/20/24 02/21/24
11:39 10:39
Troponin I 0.045 H* 0.060 H*
Physical Exam
Constitutional: No acute distress
Cardiovascular: Pedal edema is absent and Rhythm/rate is irregular
Respiratory: Respiratory effort normal and Lungs clear to auscul.
GI: Soft and Distention absent
Neuro/Psych: Alert
Data Reviewed
-
Date of Service: February 21, 2024
[2024-02-21 12:28] LABS: Vitamin B12 895 pg/ml (239-931)
--- NOTE | 2024-02-21 12:49 | W.DCSUMMARY ---
Discharge Summary
Discharge Data
Date of Admission: 02/20/24
Date of Discharge: 02/21/24
-
Pending Results: No
Hospital Course
Hospital diagnosis�hypotension and left-sided chest pain
Diagnosis prior to admission�
CAD
CHF
COPD
Dementia
Hypertension
Hypercholesterolemia
AK
BPH
A-fib
Hospital course� Patient is an 83-year-old male with dementia presenting from memory care unit to [facility] with left-sided chest pain for a few days and hypotension in the 70s. Patient is a poor historian and was unable to identify where
exactly the pain is or what aggravated/resolved it. He stated it was intermittent and nonradiating. For his blood pressure diuretics and Entresto were held and blood pressure responded to IV fluids in the ED. EKG at that time showed ventricular
pacing. Troponins elevated. Per cardiology comments, elevated troponins likely secondary to nonischemic myocardial injury. Echocardiogram on 02/20 showed normal LV size with severely reduced systolic function. LVEF is 20 to 25%, with global
diffuse hypokinesis. At time of presentation, CTA showed large 2.4 cm saccular aneurysm protruding inferolaterally from the distal thoracic aortic arch, no signs of hematoma or ruptured. Additionally patient has some stercoral colitis with rectal
wall thickening and pneumatosis. Patient's daughter reported a history of constipation, likely secondary to chronic opioid use. Patient was given 3 soapsuds enema and suppository to reduce the stool burden in colon. He had 2 large bowel movements
overnight (02/19-). Colorectal and GI following during admission. Recommendations made to continue bowel regiment with MiraLAX and senna. Patient discharged back to his residence with his at nursing facility. Family present during most of
patient's stay and part of the conversation as decisions were made.
Data reviewed-
02/19- Chest/Abd/Pelvis CT:
CHEST CTA:
1. LARGE 2.4 cm SACCULAR ANEURYSM protruding inferolaterally from the DISTAL THORACIC AORTIC ARCH.
2. Previous CABG surgery.
3. Mild cardiomegaly.
4. MODERATE-SIZED RIGHT PLEURAL EFFUSION with adjacent compressive atelectasis of the basilar segments of the right lower lobe.
5. Minimal left pleural effusion.
ABDOMEN and PELVIS CTA:
1. SEVERE ACUTE STERCORAL COLITIS in the RECTUM with fecal impaction, rectal wall thickening, and pneumatosis in the rectal wall.
2. Moderate diffuse colonic distention consistent with constipation.
3. Small volume of abdominal and pelvic ascites.
4. Moderate chronic bilateral renal disease.
5. Cholelithiasis.
6. Severe calcific atherosclerotic plaque in the abdominal aorta.
7. 70% diameter stenosis in the proximal right main renal artery.
8. Fusiform infrarenal abdominal aortic aneurysm (2.2 cm diameter).
9. Moderate to severe anasarca.
02/19- Chest XR:
IMPRESSION:
1. Mild cardiomegaly without radiographic evidence for acute pulmonary edema.
2. Suspected small right pleural effusion.
3. Mild subpleural subsegmental atelectasis and scarring in the lower lungs.
4. Previous CABG surgery.
5. Left-sided AICD in place.
02/20- Echocardiogram:
CONCLUSIONS
Normal LV size with severely reduced systolic function. LVEF is 20 to 25% by visual estimation. Global diffuse hypokinesis.Moderate to severe concentric LVH.Normal right ventricular size and function. Moderate to severe eccentric mitral
regurgitation. Estimated pulmonary artery pressure of 28 mmHg assuming a right atrial pressure of 3 mmHg.Compared to prior from May 30, 2023, MR is now moderate to severe for moderate. Ascending aorta not well-visualized on current study,
however, previously was noted at 4.3 cm.
Discharge Plan
-
Patient Disposition: Long Term/SNF
Discharge Diagnosis/Procedures: Non-AK troponin elevation, constipation
Diet: As tolerated and Regular
Activity: With assistance and As tolerated
Driving Restrictions: As prior to admission
Bathing Restrictions: None
Referrals:
Julio César Walker DO [Family Provider] - in one to two weeks
Additional Discharge Medication Instructions: Please follow up with primary care within 1 week for evaluation of hypotension
Prescriptions:
Continued
spironolactone 25 mg Tablet
12.5 mg PO DAILY
tamsulosin [Flomax] 0.4 mg Capsule
0.4 mg PO HS
finasteride [Proscar] 5 mg Tablet
5 mg PO DAILY
Entresto 24-26 mg Tablet
1 tab PO BID
cyanocobalamin (vitamin B-12) 1,000 mcg Tablet Extended Release
1,000 mcg PO DAILY
pravastatin 40 mg Tablet
40 mg PO HS
ranolazine 500 mg Tablet Extended Release 12 Hr
500 mg PO BID
cholecalciferol (vitamin D3) [Vitamin D3] 25 mcg (1,000 unit) Tablet
25 mcg PO DAILY
sennosides [senna] 8.6 mg Tablet
17.2 mg PO HS
polyethylene glycol 3350 [Miralax] 17 gram Powder In Packet
17 g PO DAILY
metoprolol succinate 50 mg Tablet Extended Release 24 Hr
50 mg PO DAILY
miconazole nitrate 2 % Powder
1 applic TOPICAL TIDPRN PRN (Reason: groin)
Rx Instructions:
apply to groin
furosemide 20 mg Tablet
20 mg PO DAILY
Eliquis 5 mg Tablet
5 mg PO BID
midodrine 5 mg Tablet
10 mg PO TID@0800,1300,1800 Qty: 60 1RF
Rx Instructions:
*AVOID DOSING AFTER EVENING MEAL OR WITHIN 4 HOURS OF
BEDTIME* HOLD DOSE FOR SBP >100
clotrimazole-betamethasone 1-0.05 % Cream
1 applic TOPICAL BID
Desitin Daily Defense 13 % Cream
1 applic TOPICAL BID
Xtampza ER 13.5 mg Cap,Sprinkl,Er12hr(Dont Crush)
13.5 mg PO BID
Cbd Cream 2500mg Tincture 2,500 mg liquid
0.5 ml PO BID
Rx Instructions:
total 83.3 mg/day
Discharge Orders:
Discharge Patient (As Directed); Ordered 02/21/24
Ordered By: Fallon Rodriguez
Discharge Date and Time
Print Language: IRISH
--- NOTE | 2024-02-21 13:15 | CM ---
Addendum entered by Uma Dia 02/21/24 14:05:
[facility]
Felipa Wade updated on patient's return today.
REPORT #: [phone]
FAX #: [phone]
Original Note:
Patient seen at bedside with daughter.
Resides at [facility] unit.
IMM explained & signed by daughter (POA)
PLAN: Discharge today to [facility].
Daughter to transport.
== END 2024-02-21 14:57 | DRG 315 ==
LOC: 4 WEST ACU 16:15
PROVIDERS: Nurse Practitioner Gerontology; ADMITTING PHYSICIAN Hospitalist; CONSULT PHYSICIAN Internal Medicine Cardiovascular Disease; EMERGENCY PHYSICIAN Student in an Organized Health Care Education/Training Program; FAMILY PHYSICIAN Family Medicine; OTHER PHYSICIAN Surgery
DX: I95.89 Other hypotension (principal); I13.0 Hypertensive heart and chronic kidney disease with heart failure and stage 1 through stage 4 chronic kidney disease, or unspecified chronic kidney disease; K52.1 Toxic gastroenteritis and colitis; I48.21 Permanent atrial fibrillation; I50.22 Chronic systolic (congestive) heart failure; J98.11 Atelectasis; R18.8 Other ascites; I5A Non-ischemic myocardial injury (non-traumatic); Z66 Do not resuscitate; I25.10 Atherosclerotic heart disease of native coronary artery without angina pectoris; E11.22 Type 2 diabetes mellitus with diabetic chronic kidney disease; E78.00 Pure hypercholesterolemia, unspecified; K56.41 Fecal impaction; K52.89 Other specified noninfective gastroenteritis and colitis; T40.2X5A Adverse effect of other opioids, initial encounter; I25.5 Ischemic cardiomyopathy; F03.90 Unspecified dementia, unspecified severity, without behavioral disturbance, psychotic disturbance, mood disturbance, and anxiety; N18.30 Chronic kidney disease, stage 3 unspecified; I71.22 Aneurysm of the aortic arch, without rupture; R26.89 Other abnormalities of gait and mobility; D63.1 Anemia in chronic kidney disease; E11.40 Type 2 diabetes mellitus with diabetic neuropathy, unspecified; G89.29 Other chronic pain; J44.9 Chronic obstructive pulmonary disease, unspecified; N40.0 Benign prostatic hyperplasia without lower urinary tract symptoms; I25.2 Old myocardial infarction; Z95.810 Presence of automatic (implantable) cardiac defibrillator; Z95.1 Presence of aortocoronary bypass graft; Z79.01 Long term (current) use of anticoagulants; Z79.891 Long term (current) use of opiate analgesic; Z95.5 Presence of coronary angioplasty implant and graft; Z88.0 Allergy status to penicillin; Z87.891 Personal history of nicotine dependence; Z79.899 Other long term (current) drug therapy; Z99.3 Dependence on wheelchair; Z96.653 Presence of artificial knee joint, bilateral; I34.1 Nonrheumatic mitral (valve) prolapse
CPT/HCPCS: 71045; 71275; 74174; 80053; 82378; 82607; 83735; 84484; 85025; 85610; 87070; 93005; 93306; 99285; Q9967

== ENCOUNTER → 2024-03-02 16:46 | Outpatient (REF) | payer OTHER, SELFPAY ==
[2024-03-02 19:18] LABS: Amphetamines Negative (Negative); Barbiturates Negative (Negative); Benzodiazepines Negative (Negative); Buprenorphine Negative (Negative); Cocaine Negative (Negative); Marijuana Negative (Negative); Methadone Negative (Negative); Methamphetamines Negative (Negative); Opiates Negative (Negative); Phencyclidine Negative (Negative)
[2024-03-02 19:40] LABS: Fentanyl, Urine Negative (Negative)
[2024-03-02 20:07] LABS: Tricyclic Antidepressants Negative (Negative)
== END ==
LOC: OLABMERCHI 16:46
PROVIDERS: ATTENDING PHYSICIAN Family Medicine
DX: R52 Pain, unspecified (principal); M16.2 Bilateral osteoarthritis resulting from hip dysplasia; M19.031 Primary osteoarthritis, right wrist; G89.29 Other chronic pain
CPT/HCPCS: 80306; 80307; 82570

== ENCOUNTER → 2024-10-18 12:46 | Outpatient (REF) | payer BC, SELFPAY | LOC: WOUND 12:46 | PROVIDERS: ATTENDING PHYSICIAN Surgery; FAMILY PHYSICIAN Family Medicine | DX: L89.312 Pressure ulcer of right buttock, stage 2 (principal); R26.2 Difficulty in walking, not elsewhere classified; E11.59 Type 2 diabetes mellitus with other circulatory complications; N18.31 Chronic kidney disease, stage 3a; R41.3 Other amnesia; I50.20 Unspecified systolic (congestive) heart failure; Z91.81 History of falling; I25.5 Ischemic cardiomyopathy; E11.22 Type 2 diabetes mellitus with diabetic chronic kidney disease | CPT/HCPCS: 99203 ==

== ENCOUNTER → 2024-10-25 10:47 | Outpatient (REF) | payer BC, SELFPAY | LOC: WOUND 10:47 | PROVIDERS: ATTENDING PHYSICIAN Surgery; FAMILY PHYSICIAN Family Medicine | DX: L89.312 Pressure ulcer of right buttock, stage 2 (principal); R26.2 Difficulty in walking, not elsewhere classified; E11.59 Type 2 diabetes mellitus with other circulatory complications; N18.31 Chronic kidney disease, stage 3a; R41.3 Other amnesia; I50.20 Unspecified systolic (congestive) heart failure; I25.5 Ischemic cardiomyopathy; Z91.81 History of falling; E11.22 Type 2 diabetes mellitus with diabetic chronic kidney disease | CPT/HCPCS: 99213 ==

== ENCOUNTER → 2024-11-01 10:15 | Outpatient (REF) | payer BC, SELFPAY | LOC: WOUND 10:15 | PROVIDERS: ATTENDING PHYSICIAN Surgery; FAMILY PHYSICIAN Family Medicine | DX: L89.312 Pressure ulcer of right buttock, stage 2 (principal); R26.2 Difficulty in walking, not elsewhere classified; E11.59 Type 2 diabetes mellitus with other circulatory complications; N18.31 Chronic kidney disease, stage 3a; R41.3 Other amnesia; I50.20 Unspecified systolic (congestive) heart failure; Z91.81 History of falling; I25.5 Ischemic cardiomyopathy | CPT/HCPCS: 99213 ==

== ENCOUNTER → 2024-11-08 10:30 | Outpatient (REF) | payer BC, SELFPAY | LOC: WOUND 10:30 | PROVIDERS: ATTENDING PHYSICIAN Surgery; FAMILY PHYSICIAN Family Medicine | DX: L89.312 Pressure ulcer of right buttock, stage 2 (principal); R26.2 Difficulty in walking, not elsewhere classified; E11.59 Type 2 diabetes mellitus with other circulatory complications; N18.31 Chronic kidney disease, stage 3a; R41.3 Other amnesia; I50.20 Unspecified systolic (congestive) heart failure; I25.5 Ischemic cardiomyopathy; Z91.81 History of falling | CPT/HCPCS: 99213 ==

== ENCOUNTER → 2024-11-16 10:35 | Outpatient (REF) | payer BC, SELFPAY | LOC: WOUND 10:35 | PROVIDERS: ATTENDING PHYSICIAN Surgery; FAMILY PHYSICIAN Family Medicine | DX: L89.312 Pressure ulcer of right buttock, stage 2 (principal); R26.2 Difficulty in walking, not elsewhere classified; E11.59 Type 2 diabetes mellitus with other circulatory complications; N18.31 Chronic kidney disease, stage 3a; R41.3 Other amnesia; I50.20 Unspecified systolic (congestive) heart failure; I25.5 Ischemic cardiomyopathy; Z91.81 History of falling; E11.22 Type 2 diabetes mellitus with diabetic chronic kidney disease | CPT/HCPCS: 99213 ==

== ENCOUNTER → 2024-12-07 10:09 | Outpatient (REF) | payer BC, SELFPAY | LOC: WOUND 10:09 | PROVIDERS: ATTENDING PHYSICIAN Surgery; FAMILY PHYSICIAN Family Medicine | DX: L89.312 Pressure ulcer of right buttock, stage 2 (principal); R26.2 Difficulty in walking, not elsewhere classified; E11.59 Type 2 diabetes mellitus with other circulatory complications; N18.31 Chronic kidney disease, stage 3a; R41.3 Other amnesia; I50.20 Unspecified systolic (congestive) heart failure; I25.5 Ischemic cardiomyopathy; Z91.81 History of falling; E11.22 Type 2 diabetes mellitus with diabetic chronic kidney disease | CPT/HCPCS: 97597 ==

== ENCOUNTER → 2024-12-21 09:14 | Outpatient (REF) | payer BC, SELFPAY | LOC: WOUND 09:14 | PROVIDERS: ATTENDING PHYSICIAN Surgery; FAMILY PHYSICIAN Hospitalist | DX: L89.510 Pressure ulcer of right ankle, unstageable (principal); R26.2 Difficulty in walking, not elsewhere classified; E11.59 Type 2 diabetes mellitus with other circulatory complications; N18.31 Chronic kidney disease, stage 3a; R41.3 Other amnesia; I50.20 Unspecified systolic (congestive) heart failure; I25.5 Ischemic cardiomyopathy; Z91.81 History of falling; E11.22 Type 2 diabetes mellitus with diabetic chronic kidney disease | CPT/HCPCS: 99213 ==